=== PATIENT | female | born 1930 | race Caucasian/White ===

== ENCOUNTER 2017-08-30 05:36 | Outpatient (CLI) | payer MEDICARE, MEDICAID ==
[~2017-08-30] VITALS: Ht 167.6 cm; Wt 59.7 kg
[~2017-08-30 05:36] MED LIST: AC325T PO; ASP325TEC PO; ATR20T PO; BSP5T PO; BUSP10TA95 PO; BUSP5TAB59 PO; BUSPAR PO; CHOL2000 PO; CHOL400C8 PO; CLCX200C; CLCX200C PO; DARI15TA4 PO; DICY10CA26 PO; DIGO125T PO; DIGO250T PO; FESO4TAB; HYOS0.127; LISI20TA2 PO; LNS30CCR; METH500T7; METO10TA3; METO5TAB2 PO; MTP25TSR PO; NF-ESOM40C PO; NYST1000 PO; OMEP-10 PO; OMEP20CA6 PO; OXYB15TA PO; PANT40TA2 PO; RLX60T PO; SIMV40TA2; SUCR1ORA5 PO; WARF3TAB6 PO; WRF3T PO; [UNRECOGNIZED DRUG - CODE]; fish PO
== END 2017-08-30 10:15 ==
LOC: PREOP 05:36
PROVIDERS: ATTEND Surgery
DX: Z01.818 Encounter for other preprocedural examination (principal); R13.10 Dysphagia, unspecified

== ENCOUNTER 2017-09-03 08:57 | Day surgery (SDC) | payer MEDICARE, MEDICAID ==
[~2017-09-03] VITALS: Ht 167.6 cm; Wt 59.7 kg
[2017-09-03] MEDS ORDERED: LACTATED RINGERS 1,000 ML IV STA (09:05)
[2017-09-03] MEDS ORDERED: HURRICAINE EXT TUBE (BENZOCAINE) XX PRN (09:15)
[2017-09-03] MEDS ORDERED: CHOL10008 PO (09:26)
[2017-09-03] MEDS ORDERED: DIGO125T PO (09:26)
[2017-09-03] MEDS ORDERED: METO10TA3 PO (09:26)
[2017-09-03] MEDS ORDERED: OXYB15TA PO (09:26)
[2017-09-03] MEDS ORDERED: CELE-63 PO (09:26)
[2017-09-03] MEDS ORDERED: RALO60TA12 PO (09:26)
[2017-09-03] MEDS ORDERED: LISI-552 PO (09:26)
[2017-09-03] MEDS ORDERED: DICY10CA12 PO (09:26)
[2017-09-03] MEDS ORDERED: WARF3TAB6 PO (09:31)
[2017-09-03] MEDS ORDERED: OMG1KC PO (09:31)
[2017-09-03] MEDS ORDERED: ASPI-999 PO (09:31)
[2017-09-03] MEDS ORDERED: PANT40TA2 PO (09:31)
[2017-09-03] MEDS ORDERED: AMLO5TAB2 PO (09:31)
[2017-09-03] MEDS ORDERED: DORZ10DR OU (09:31)
[2017-09-03] MEDS ORDERED: MIDAZOLAM 2 MG/2 ML (VERSED) VIAL ONE (11:13)
[2017-09-03] MEDS ORDERED: proPOfol 200 MG/20 ML (DIPRIVAN) VIAL IV ONE (11:13)
[2017-09-03] MEDS ORDERED: LABETALOL HCL 20 MG/4 ML VIAL ONE (11:23)
== END 2017-09-03 14:30 | disposition home or self-care (01) ==
LOC: ENDO 08:57
PROVIDERS: ATTEND Surgery
DX: J39.2 Other diseases of pharynx (principal); K21.9 Gastro-esophageal reflux disease without esophagitis; I44.0 Atrioventricular block, first degree; I10 Essential (primary) hypertension; I48.91 Unspecified atrial fibrillation; E78.2 Mixed hyperlipidemia; Z86.73 Personal history of transient ischemic attack (TIA), and cerebral infarction without residual deficits; Z79.01 Long term (current) use of anticoagulants; Z79.899 Other long term (current) drug therapy

== ENCOUNTER → 2017-09-04 | Outpatient (CLI) | payer MEDICARE, MEDICAID ==
[~2017-09-04] MED LIST changes: +AMLO5TAB2 PO; +ASPI-999 PO; +CELE-63 PO; +CHOL10008 PO; +DICY10CA12 PO; +DORZ10DR OU; +LISI-552 PO; +METO10TA3 PO; +OMG1KC PO; +RALO60TA12 PO
--- NOTE | 2017-09-04 11:35 | Diagnostic Imaging Report ---
EXAMINATION: Modified barium swallow. Indication: Dysphagia Different consistencies of fluid and food was given mixed with barium and swallowing was visualized under fluoroscopy. FLUOROSCOPY TIME: 41 seconds FINDINGS: No aspiration seen. There is an area of persistent narrowing seen at the lower from hypopharynx near the retropharyngeal and upper esophageal sphincter level. There is no significant superior from the adjacent vertebra seen. 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 ENT evaluation is suggested. Please refer to speech therapist's report for additional details . Dictated by: Dictated on workstation # [id number]
== END ==
LOC: RAD 10:21
PROVIDERS: ATTEND Surgery
DX: R13.10 Dysphagia, unspecified (principal)
CPT/HCPCS: 74230

== ENCOUNTER 2018-01-31 14:46 | Emergency (ER) | payer MEDICARE, MEDICAID ==
[~2018-01-31] VITALS: Ht 157.5 cm; Wt 58.1 kg
[~2018-01-31 14:46] MED LIST changes: +WARF3TAB56 PO
--- NOTE | 2018-01-31 14:52 | ED Fall/Injury ---
General Stated Complaint: FALL-HEAD AND NECK PAIN Source: patient Exam Limitations: no limitations History of Present Illness Date Seen by Provider: Jan 31, 2018 Time Seen by Provider: 14:50 Initial Comments This 87-year-old female presents after she inadvertently fell at home from standing height sustaining injury to her head. The patient is on Coumadin. The patient denies loss of consciousness. She states that she simply lost her balance causing fall. Patient denies paresthesias or weakness of extremities. Patient denies other remarkable injuries in the accident. Allergies and Home Medications Allergies Coded Allergies: Penicillins (Unverified Allergy, Intermediate, 04/17/10) Thzaurp-Xqh-Cwt Reductase Inhibitor (Verified Allergy, Unknown, RASH, 09/03) latex (Verified Allergy, Unknown, 09/03/17) Home Medications Amlodipine Besylate 5 Mg Tablet, 5 MG PO HS, (Reported) Aspirin 81 Mg Tab.chew, 81 MG PO DAILY PRN, (Reported) Celecoxib 200 Mg Capsule, 200 MG PO DAILY PRN for depression, (Reported) Cholecalciferol (Vitamin D3) 1,000 Unit Tab.chew, 1,000 UNIT PO DAILY, (Reported ) Dicyclomine HCl 10 Mg Capsule, 10 MG PO Q6H PRN for HEARTBURN, (Reported) Digoxin 125 Mcg Tablet, 125 MCG PO DAILY, (Reported) Dorzolamide HCl 10 Ml Drops, 1 DROP OU BID, (Reported) Lisinopril 20 Mg Tablet, 20 MG PO DAILY, (Reported) Metoclopramide HCl 10 Mg Tablet, 10 MG PO Q6H PRN for NAUSEA/VOMITING-1ST LINE, (Reported) [place] 3 Polyunsat Fatty Acids 1,000 Mg Cap, 1,000 MG PO DAILY, (Reported) Oxybutynin Chloride 15 Mg Tab.er.24, 15 MG PO DAILY PRN for bladder control, ( Reported) Pantoprazole Sodium 40 Mg Tablet.dr, 40 MG PO BID, (Reported) Raloxifene HCl 60 Mg Tablet, 60 MG PO HS PRN for joint pain, (Reported) Warfarin Sodium 3 Mg Tablet, 1.5-3 MG PO DAILY@1800, (Reported) take 1/2 of 3mg tab on Mon,Wed,Fri Patient Home Medication List Home Medication List Reviewed: Yes Constitutional: No chills Eyes: Denies Blurred Vision, Other (there is area of soft tissue swelling over the left occiput.) Ears, Nose, Mouth, Throat: denies ear pain Respiratory: No cough Cardiovascular: No chest pain Gastrointestinal: No abdominal pain, No vomiting Genitourinary: no symptoms reported : No Musculoskeletal: joint pain (in the patient's hips.) Skin: No rash Psychiatric/Neurological: No Symptoms Reported Past Cvybawt-Gtrblq-Jbgoch Hx Patient Social History Recent Foreign Travel: No Contact w/Someone Who Travel: No Recent Hopitalizations: No Immunizations Up To Date Tetanus Booster (TDap): Unknown Date of Pneumonia Vaccine: Sep 26, 2012 Date of Influenza Vaccine: Sep 16, 2014 Seasonal Allergies Seasonal Allergies: No Surgeries Surgeries: Appendectomy, Hysterectomy Cardiovascular Cardiac Disorders: Atrial Fibrillation, Hypertension Reproductive System Hx Reproductive Disorders: No Sexually Transmitted Disease: No HIV/AIDS: No Female Reproductive Disorders: Denies 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 Gastrointestinal Gastrointestinal Disorders: Hiatal Hernia, Ulcer Musculoskeletal Musculoskeletal Disorders: Osteoporosis, Arthritis, Chronic Back Pain HEENT HEENT Disorders: Cataract Loss of Vision: Bilateral Psychosocial Behavioral Health Disorders: Anxiety Blood Transfusions Adverse Reaction to a Blood Tr: No (N/A) Reviewed Nursing Assessment Reviewed/Agree w Nursing PMH: Yes Family Medical History Significant Family History: No Pertinent Family Hx Family Medial History: Physical Exam Vital Signs Vital Signs - First Documented 01/31/18 14:55 Temp 98.0 Pulse 71 Resp 18 B/P (MAP) 193/90 (124) Pulse Ox 96 Capillary Refill : General Appearance: WD/WN, no apparent distress HEENT: normal ENT inspection Neck: full range of motion, normal inspection Cardiovascular: irregularly irregular Respiratory: lungs clear Gastrointestinal: normal bowel sounds, non tender Back: normal inspection, no vertebral tenderness Extremities: normal range of motion, non-tender Neurologic/Psychiatric: no motor/sensory deficits, alert, normal mood/affect, oriented x 3 Skin: normal color, warm/dry Progress/Results/Core Measures Results/Orders Lab Results Laboratory Tests Test 01/31/18 15:53 Range/Units Prothrombin Time 20.7 H 12.2-14.7 SEC INR Comment 1.8 H 0.8-1.4 My Orders Orders - HANNA GARCIA MD Protime With Inr (01/31/18 14:49) Pelvis With Left Hip 2-3 Views (01/31/18 15:00) Ct Head/Cervical Spine Wo (3/2/18 14:49) Vital Signs/I&O Vital Sign - Last 12Hours 01/31/18 14:55 Temp 98.0 Pulse 71 Resp 18 B/P (MAP) 193/90 (124) Pulse Ox 96 Progress Note : Time: 17:13 Progress Note The patient's daughter describes some confusion today when talking to her mother similar to previous episodes of TIA. The patient according to the daughter appears to be normal at this time. INR was 1.8. CT of the head failed him see evidence of acute pathology. Pelvis x-ray failed to show evidence of fracture. We discussed the findings and treatment options with the patient and her daughter. The patient would like to return home. The daughter is comfortable with this treatment approach and will bring the patient back to emergency department if any further problems or questions. Departure Impression Impression: Primary Impression: Atrial fibrillation Qualified Codes: I48.2 - Chronic atrial fibrillation Additional Impression: Fall Qualified Codes: W19.XXXA - Unspecified fall, initial encounter Disposition: 01 HOME, SELF-CARE Condition: Improved Departure-Patient Inst. Decision time for Depature: 17:15 Referrals: DIANE BENITES (PCP) Primary Care Physician Patient Instructions: Closed Head Injury (DC) Add. Discharge Instructions: Back any further problems or questions. Close follow-up with her doctor on Saturday. HANNA GARCIA MD Jan 31, 2018 14:52
--- NOTE | 2018-01-31 15:59 | Diagnostic Imaging Report ---
PROCEDURE: CT head and CT cervical spine without contrast. TECHNIQUE: Multiple contiguous axial images were obtained through the brain and cervical spine without the use of intravenous contrast. Sagittal and coronal reformations through the cervical spine were then performed. INDICATION: Fall with head injury. FINDINGS: CT BRAIN: Ventricles and sulci are consistent with the patient's age. Mild periventricular hypodensity is noted consistent with senescent change. No sulcal effacement is identified. There is no midline shift. No acute intra-axial or extra-axial hemorrhage is seen. IMPRESSION: No acute intracranial process is detected. CT CERVICAL SPINE: Severe multilevel degenerative disc disease is seen. There is complete loss of the disc space at all levels with marginal osteophyte formation. Cystic degenerative changes of the odontoid are noted. There are marked degenerative changes at the C1-2 level on the left. No fractures are identified. Prevertebral tissues are normal. IMPRESSION: Severe cervical spondylosis. No acute bony abnormality is detected. Dictated by: Dictated on workstation # [id number]
--- NOTE | 2018-01-31 16:00 | Diagnostic Imaging Report ---
INDICATION: Fall and left groin pain. TIME OF EXAM: 03:48 p.m. FINDINGS: Femoroacetabular alignment is normal. The femoral head and neck are intact. The rami appear intact. No fractures are seen. SI joints and symphyses are non-widened. IMPRESSION: No acute bony abnormality is detected. Dictated by: Dictated on workstation # [id number]
[2018-01-31 16:12] LABS: INR 1.8 (0.8-1.4); PROTHROMBIN TIME PATIENT 20.7 SEC (12.2-14.7)
[2018-01-31 17:30] VITALS: BP 193/90
== END 2018-01-31 17:30 | disposition home or self-care (01) ==
LOC: EDUNIT# 14:46 → ER 14:48
DX: S09.90XA Unspecified injury of head, initial encounter (principal); I48.91 Unspecified atrial fibrillation; F41.9 Anxiety disorder, unspecified; M81.0 Age-related osteoporosis without current pathological fracture; I10 Essential (primary) hypertension; Z90.710 Acquired absence of both cervix and uterus; Z90.49 Acquired absence of other specified parts of digestive tract; Z87.19 Personal history of other diseases of the digestive system; Z79.01 Long term (current) use of anticoagulants; Z79.82 Long term (current) use of aspirin; Z88.0 Allergy status to penicillin; Z88.8 Allergy status to other drugs, medicaments and biological substances; Z91.040 Latex allergy status; W17.89XA Other fall from one level to another, initial encounter; Y92.009 Unspecified place in unspecified non-institutional (private) residence as the place of occurrence of the external cause
CPT/HCPCS: 36415; 70450; 72125; 85610

== ENCOUNTER → 2018-07-08 | Outpatient (CLI) | payer MEDICARE, MEDICAID | LOC: WOUNDCARE 08:54 | PROVIDERS: ATTEND Nurse Practitioner | DX: L97.521 Non-pressure chronic ulcer of other part of left foot limited to breakdown of skin (principal); L03.116 Cellulitis of left lower limb | CPT/HCPCS: 97597 ==

== ENCOUNTER → 2018-07-15 | Outpatient (CLI) | payer MEDICARE, MEDICAID | LOC: WOUNDCARE 09:21 | PROVIDERS: ATTEND Nurse Practitioner | DX: L97.522 Non-pressure chronic ulcer of other part of left foot with fat layer exposed (principal); L03.116 Cellulitis of left lower limb | CPT/HCPCS: 11042 ==

== ENCOUNTER → 2018-08-05 | Outpatient (CLI) | payer MEDICARE, MEDICAID ==
[~2018-08-05] MED LIST changes: -AMLO5TAB2 PO; +AMLO5TAB7 PO
== END ==
LOC: WOUNDCARE 09:40
PROVIDERS: ATTEND Nurse Practitioner
DX: L03.116 Cellulitis of left lower limb (principal); L97.521 Non-pressure chronic ulcer of other part of left foot limited to breakdown of skin
CPT/HCPCS: 99212

== ENCOUNTER → 2018-09-17 | Outpatient (CLI) | payer MEDICARE, MEDICAID | LOC: CARD 10:39 | PROVIDERS: ATTEND Internal Medicine Cardiovascular Disease | DX: I10 Essential (primary) hypertension (principal); E78.2 Mixed hyperlipidemia; R00.2 Palpitations; I48.0 Paroxysmal atrial fibrillation; I08.1 Rheumatic disorders of both mitral and tricuspid valves; K21.9 Gastro-esophageal reflux disease without esophagitis | CPT/HCPCS: 93306 ==

== ENCOUNTER 2019-04-19 12:36 | Observation (INO) | payer MEDICARE, MEDICAID ==
[~2019-04-19] VITALS: Ht 157.5 cm; Wt 57.4 kg
[~2019-04-19 12:36] MED LIST changes: -AMLO5TAB7 PO; +AMLO5TAB9 PO
--- OUTSIDE RECORDS SUMMARY | 2019-04-19 12:42 | XMS REPORT | Continuity of Care Document ---
Author Organization Unknown Address Unknown Allergies Active Description Code Type Severity Reaction Onset Reported/Identified Relationship to Patient Clinical Status Yes PENICILLINS UNKNOWN UNKNOWN Yes SEAFOOD MODERATE DERMATOLOGICAL - JOSELINE Yes Penicillins [id number] Drug Allergy Moderate N/A 04/17/2010 Yes latex [id number] Drug Allergy Unknown N/A 09/03/2017 Yes Yzyvrlm-Jkd-Hcp Reductase Inhibitor [id number] Drug Allergy Unknown RASH 09/03/2017 Medications There is no data. Problems Date Dx Coded Attending Type Code Diagnosis Diagnosed By 04/22/2010 Ot 272.4 04/22/2010 Ot 276.51 04/22/2010 Ot 401.9 04/22/2010 Ot 427.31 04/22/2010 Ot 530.81 04/22/2010 Ot 536.8 04/22/2010 Ot 716.96 04/22/2010 Ot 733.00 04/22/2010 Ot 782.3 04/22/2010 Ot 787.01 04/22/2010 Ot E935.8 04/25/2010 Ot 427.31 04/25/2010 Ot V58.61 07/04/2013 CAL SOTO MD Ot 272.4 HYPERLIPIDEMIA NEC/NOS 07/04/2013 CAL SOTO MD Ot 401.9 HYPERTENSION NOS 07/04/2013 CAL SOTO MD Ot 427.31 ATRIAL FIBRILLATION 07/04/2013 CAL SOTO MD Ot 733.00 OSTEOPOROSIS NOS 07/04/2013 CAL SOTO MD Ot 780.60 FEVER, UNSPECIFIED 07/04/2013 CAL SOTO MD Ot 780.79 OTH MALAISE FATIGUE 07/04/2013 CAL SOTO MD Ot 780.97 ALTERED MENTAL STATUS 07/04/2013 CAL SOTO MD Ot 784.0 HEADACHE 07/04/2013 CAL SOTO MD Ot 787.01 NAUSEA WITH VOMITING 07/04/2013 CAL SOTO MD Ot 787.91 DIARRHEA 07/04/2013 CAL SOTO MD Ot E942.1 ADV EFF CARDIOTONICS 07/04/2013 CAL SOTO MD Ot V58.61 ANTICOAGULANTS,LT,CURRENT USE 10/27/2014 Ot 397.0 10/27/2014 Ot 424.0 10/27/2014 Ot 427.31 10/27/2014 Ot 429.3 10/27/2014 Ot 786.09 10/27/2014 Ot 427.31 10/27/2014 Ot 786.09 10/27/2014 JASBIR HI MD Ot 722.52 10/27/2014 JASBIR HI MD Ot 729.5 10/28/2014 GISELLA MOONEY FACC, ALI FACP CCDS Ot 272.4 HYPERLIPIDEMIA NEC/NOS 10/28/2014 GISELLA MOONEY FACC, ALI FACP CCDS Ot 401.9 HYPERTENSION NOS 10/28/2014 GISELLA MOONEY FACC, ALI FACP CCDS Ot 427.31 ATRIAL FIBRILLATION 10/28/2014 GISELLA MOONEY FACC, ALI FACP CCDS Ot 433.10 CAROTID ARTERY OCCLUSION W O CEREBRAL IN 10/28/2014 GISELLA MOONEY FACC, ALI FACP CCDS Ot 433.30 MULT BILTRAL ARTERY OCCLUSION WO CEREBRA 10/28/2014 GISELLA MOONEY FACC, ALI FACP CCDS Ot 530.81 ESOPHAGEAL REFLUX 10/28/2014 GISELLA MOONEY FACC, ALI FACP CCDS Ot 272.4 10/28/2014 GISELLA MOONEY FACC, ALI FACP CCDS Ot 401.9 10/28/2014 GISELLA MOONEY FACC, ALI FACP CCDS Ot 427.31 10/28/2014 GISELLA CAZARESC, ALI FACP CCDS Ot 433.10 10/28/2014 GISELLA MOONEY FACC, ALI FACP CCDS Ot 433.30 10/28/2014 GISELLA MOONEY FACC, ALI FACP CCDS Ot 530.81 11/02/2014 Ot 397.0 11/02/2014 Ot 424.0 11/02/2014 Ot 427.31 11/02/2014 Ot 429.3 11/02/2014 Ot 786.09 11/02/2014 Ot 427.31 11/02/2014 Ot 786.09 11/02/2014 JASBIR HI MD Ot 722.52 11/02/2014 JASBIR HI MD Ot 729.5 12/01/2014 GISELLA MOONEY [facility], ALI FACP CCDS Ot 427.31 12/01/2014 GISELLA MOONE[facility] CCD[facility] Ot 518.89 12/22/2014 GISELLA MOONEY [facility] CCDS Ot 427.31 12/22/2014 GISELLA MOONEY [facility], [facility] FACP CCDS Ot 518.89 02/08/2016 JS WALDEN MD Ot E78.2 02/08/2016 JS WALDEN MD Ot I10 02/08/2016 JS WALDEN MD Ot I48.0 02/08/2016 JS WALDEN MD Ot R00.2 02/23/2016 JASBIR HI MD Ot J34.89 02/23/2016 JS WALDEN MD Ot E78.2 02/23/2016 JS WALDEN MD Ot I10 02/23/2016 JS WALDEN MD Ot I48.0 02/23/2016 JS WALDEN MD Ot R00.2 02/27/2016 JASBIR HI MD Ot J34.89 03/08/2016 JS WALDEN MD Ot E78.2 03/08/2016 JS WALDEN MD Ot I10 03/08/2016 JS WALDEN MD Ot I48.0 03/08/2016 JS WALDEN MD Ot R00.2 03/13/2016 JASBIR HI MD Ot J34.89 03/20/2016 JASBIR HI MD Ot J34.89 OTHER SPECIFIED DISORDERS OF NOSE AND NA 03/27/2016 JS WALDEN MD Ot E78.2 MIXED HYPERLIPIDEMIA 03/27/2016 JS WALDEN MD Ot I10 ESSENTIAL (PRIMARY) HYPERTENSION 03/27/2016 JS WALDEN MD Ot I48.0 PAROXYSMAL ATRIAL FIBRILLATION 03/27/2016 JS WALDEN MD Ot R00.2 PALPITATIONS 04/06/2016 JS WALDEN MD Ot E78.2 MIXED HYPERLIPIDEMIA 04/06/2016 JS WALDEN MD Ot I10 ESSENTIAL (PRIMARY) HYPERTENSION 04/06/2016 JS WALDEN MD Ot I48.0 PAROXYSMAL ATRIAL FIBRILLATION 04/06/2016 JS WALDEN MD Ot R00.2 PALPITATIONS 05/02/2016 SUSSY MOONEY, JASBIR Ag Ot R06.02 SHORTNESS OF BREATH 05/22/2016 SUSSY MOONEY, JASBIR Ag Ot R06.02 SHORTNESS OF BREATH 06/06/2016 JASBIR HI MD Ot R06.02 SHORTNESS OF BREATH 07/16/2016 THONG RICHARDSON DO Ot I10 ESSENTIAL (PRIMARY) HYPERTENSION 07/16/2016 THONG RICHARDSON DO Ot 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 07/16/2016 THONG RICHARDSON DO Ot T18.198A OTH FOREIGN OBJECT IN ESOPHAGUS CAUSING 07/16/2016 THONG RICHARDSON DO Ot I10 ESSENTIAL (PRIMARY) HYPERTENSION 07/16/2016 THONG RICHARDSON DO Ot 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 07/16/2016 THONG RICHARDSON DO Ot K29.70 GASTRITIS, UNSPECIFIED, WITHOUT BLEEDING 07/16/2016 THONG RICHARDSON DO Ot K44.9 DIAPHRAGMATIC HERNIA WITHOUT OBSTRUCTION 07/16/2016 THONG RICHARDSON DO Ot T18.198A OTH FOREIGN OBJECT IN ESOPHAGUS CAUSING 07/16/2016 THONG RICHARDSON DO Ot Z79.01 JAIL (CURRENT) USE OF ANTICOAGULANT 07/16/2016 THONG RICHARDSON DO Ot Z79.899 OTHER HEAT SEAL OPERATOR (CURRENT) DRUG THERAPY 07/18/2016 THONG RICHARDSON DO Ot I10 ESSENTIAL (PRIMARY) HYPERTENSION 07/18/2016 THONG RICHARDSON DO Ot 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 07/18/2016 THONG RICHARDSON DO Ot K29.70 GASTRITIS, UNSPECIFIED, WITHOUT BLEEDING 07/18/2016 THONG RICHARDSON DO Ot K44.9 DIAPHRAGMATIC HERNIA WITHOUT OBSTRUCTION 07/18/2016 THONG RICHARDSON DO Ot T18.198A OTH FOREIGN OBJECT IN ESOPHAGUS CAUSING 07/18/2016 THONG RICHARDSON DO Ot Z79.01 JAIL (CURRENT) USE OF ANTICOAGULANT 07/18/2016 THONG RICHARDSON DO Ot Z79.899 OTHER JAIL (CURRENT) DRUG THERAPY 08/30/2017 THONG RICHARDSON DO Ot R13.10 DYSPHAGIA, UNSPECIFIED 08/30/2017 THONG RICHARDSON DO Ot Z01.818 ENCOUNTER FOR OTHER PREPROCEDURAL EXAMIN 08/30/2017 THONG RICHARDSON DO Ot R13.10 DYSPHAGIA, UNSPECIFIED 08/30/2017 THONG RICHARDSON DO Ot Z01.818 ENCOUNTER FOR OTHER PREPROCEDURAL EXAMIN 09/03/2017 Ot 397.0 TRICUSPID VALVE DISEASE 09/03/2017 Ot 424.0 MITRAL VALVE DISORDER 09/03/2017 Ot 427.31 ATRIAL FIBRILLATION 09/03/2017 Ot 429.3 CARDIOMEGALY 09/03/2017 Ot 786.09 RESPIRATORY ABNORM NEC 09/03/2017 Ot 427.31 ATRIAL FIBRILLATION 09/03/2017 Ot 786.09 RESPIRATORY ABNORM NEC 09/03/2017 JASBIR HI MD Ot 722.52 LUMB/LUMBOSAC DISC DEGEN 09/03/2017 JASBIR HI MD Ot 729.5 PAIN IN LIMB 09/03/2017 GISELLA MOONEY FACC, ALI SAGEP CCDS Ot 427.31 ATRIAL FIBRILLATION 09/03/2017 GISELLA MOONEY FACC, ALI SAGEP CCDS Ot 518.89 OTHER DISEASES OF LUNG, NEC 09/03/2017 JS WALDEN MD Ot E78.2 MIXED HYPERLIPIDEMIA 09/03/2017 JS WALDEN MD Ot I10 ESSENTIAL (PRIMARY) HYPERTENSION 09/03/2017 JS WALDEN MD Ot I48.0 PAROXYSMAL ATRIAL FIBRILLATION 09/03/2017 JS WALDEN MD Ot R00.2 PALPITATIONS 09/03/2017 JS WALDEN MD Ot E78.2 MIXED HYPERLIPIDEMIA 09/03/2017 JS WALDEN MD Ot I10 ESSENTIAL (PRIMARY) HYPERTENSION 09/03/2017 JS WALDEN MD Ot I48.0 PAROXYSMAL ATRIAL FIBRILLATION 09/03/2017 JS WALDEN MD Ot R00.2 PALPITATIONS 09/03/2017 JASBIR HI MD Ot J34.89 OTHER SPECIFIED DISORDERS OF NOSE AND NA 09/03/2017 JASBIR HI MD Ot R06.02 SHORTNESS OF BREATH 09/03/2017 Ot 397.0 TRICUSPID VALVE DISEASE 09/03/2017 Ot 424.0 MITRAL VALVE DISORDER 09/03/2017 Ot 427.31 ATRIAL FIBRILLATION 09/03/2017 Ot 429.3 CARDIOMEGALY 09/03/2017 Ot 786.09 RESPIRATORY ABNORM NEC 09/03/2017 Ot 427.31 ATRIAL FIBRILLATION 09/03/2017 Ot 786.09 RESPIRATORY ABNORM NEC 09/03/2017 JASBIR HI MD Ot 722.52 LUMB/LUMBOSAC DISC DEGEN 09/03/2017 JASBIR HI MD Ot 729.5 PAIN IN LIMB 09/03/2017 GISELLA MOONEY FAC, ALI SAGEP CCDS Ot 427.31 ATRIAL FIBRILLATION 09/03/2017 GISELLA MOONEY FAC, ALI FACP CCDS Ot 518.89 OTHER DISEASES OF LUNG, NEC 09/03/2017 JS WALDEN MD Ot E78.2 MIXED HYPERLIPIDEMIA 09/03/2017 JS WALDEN MD Ot I10 ESSENTIAL (PRIMARY) HYPERTENSION 09/03/2017 JS WALDEN MD Ot I48.0 PAROXYSMAL ATRIAL FIBRILLATION 09/03/2017 JS WALDEN MD Ot R00.2 PALPITATIONS 09/03/2017 JS WALDEN MD Ot E78.2 MIXED HYPERLIPIDEMIA 09/03/2017 JS WALDEN MD Ot I10 ESSENTIAL (PRIMARY) HYPERTENSION 09/03/2017 JS WALDEN MD Ot I48.0 PAROXYSMAL ATRIAL FIBRILLATION 09/03/2017 JS WALDEN MD Ot R00.2 PALPITATIONS 09/03/2017 JASBIR HI MD Ot J34.89 OTHER SPECIFIED DISORDERS OF NOSE AND NA 09/03/2017 JASBIR HI MD Ot R06.02 SHORTNESS OF BREATH 09/03/2017 THONG RICHARDSON DO Ot E78.2 MIXED HYPERLIPIDEMIA 09/03/2017 THONG RICHARDSON DO Ot I10 ESSENTIAL (PRIMARY) HYPERTENSION 09/03/2017 THONG RICHARDSON DO Ot I44.0 ATRIOVENTRICULAR BLOCK, FIRST DEGREE 09/03/2017 THONG RICHARDSON DO Ot I48.91 UNSPECIFIED ATRIAL FIBRILLATION 09/03/2017 THONG RICHARDSON DO Ot 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 09/03/2017 THONG RICHARDSON DO Ot K21.9 GASTRO-ESOPHAGEAL REFLUX DISEASE WITHOUT 09/03/2017 THONG RICHARDSON DO Ot Z79.01 HEAT SEAL OPERATOR (CURRENT) USE OF ANTICOAGULANT 09/03/2017 THONG RICHARDSON DO Ot Z79.899 OTHER JAIL (CURRENT) DRUG THERAPY 09/03/2017 THONG RICHARDSON DO Ot Z86.73 PRSNL HX OF TIA (TIA), AND CEREB INFRC W 09/04/2017 RICHARDSON THONG GUILLEN Ot R13.10 DYSPHAGIA, UNSPECIFIED 09/23/2017 RICHARDSONTHONG WOODALL DO Ot E78.2 MIXED HYPERLIPIDEMIA 09/23/2017 RICHARDSON DOTHONG Ot I10 ESSENTIAL (PRIMARY) HYPERTENSION 09/23/2017 THONG RICHARDSON DO Ot I44.0 ATRIOVENTRICULAR BLOCK, FIRST DEGREE 09/23/2017 THONG RICAHRDSON DO Ot I48.91 UNSPECIFIED ATRIAL FIBRILLATION 09/23/2017 THONG RICHARDSON DO Ot 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 09/23/2017 THONG RICHARDSON DO Ot K21.9 GASTRO-ESOPHAGEAL REFLUX DISEASE WITHOUT 09/23/2017 THONG RICHARDSON DO Ot Z79.01 HEAT SEAL OPERATOR (CURRENT) USE OF ANTICOAGULANT 09/23/2017 THONG RICHARDSON DO Ot Z79.899 OTHER JAIL (CURRENT) DRUG THERAPY 09/23/2017 THONG RICHARDSON DO Ot Z86.73 PRSNL HX OF TIA (TIA), AND CEREB INFRC W 09/25/2017 RICHARDSONTHONG WOODALL DO Ot R13.10 DYSPHAGIA, UNSPECIFIED 10/18/2017 THONG RICHARDSON DO Ot R13.10 DYSPHAGIA, UNSPECIFIED 01/31/2018 JOSE MOONEY, HANNA Baker Ot F41.9 ANXIETY DISORDER, UNSPECIFIED 01/31/2018 JOSE MOONEY, HANNA Baker Ot I10 ESSENTIAL (PRIMARY) HYPERTENSION 01/31/2018 JOSE MOONEY, HANNA Baker Ot I48.91 UNSPECIFIED ATRIAL FIBRILLATION 01/31/2018 JOSE MOONEY, HANNA Baker Ot M81.0 AGE-RELATED OSTEOPOROSIS W/O CURRENT PAT 01/31/2018 JOSE MOONEY, HANNA Baker Ot S09.90XA UNSPECIFIED INJURY OF HEAD, INITIAL ENCO 01/31/2018 HANNA GARCIA MD Ot W17.89XA OTHER FALL FROM ONE LEVEL TO ANOTHER, IN 01/31/2018 HANNA GARCIA MD Ot Y92.[address] IN [facility] NON-INSTITUT (PRIVATE 01/31/2018 HANNA GARCIA MD Ot Z79.01 HEAT SEAL OPERATOR (CURRENT) USE OF ANTICOAGULANT 01/31/2018 HANNA GARCIA MD Ot Z79.82 HEAT SEAL OPERATOR (CURRENT) USE OF ASPIRIN 01/31/2018 JOSE MOONEY, HANNA Baker Ot Z87.19 PERSONAL HISTORY OF OTHER DISEASES OF 01/31/2018 HANNA GARCIA MD Ot Z88.0 ALLERGY STATUS TO PENICILLIN 01/31/2018 HANNA GARCIA MD Ot Z88.8 ALLERGY STATUS TO OTH DRUG/MEDS/BIOL SUB 01/31/2018 HANNA GARCIA MD Ot Z90.49 ACQUIRED ABSENCE OF OTHER SPECIFIED PART 01/31/2018 HANNA GARCIA MD Ot Z90.710 ACQUIRED ABSENCE OF BOTH CERVIX AND UTER 01/31/2018 HANNA GARCIA MD Ot Z91.040 LATEX ALLERGY STATUS 02/03/2018 HANNA GARCIA MD Ot F41.9 ANXIETY DISORDER, UNSPECIFIED 02/03/2018 HANNA GARCIA MD Ot I10 ESSENTIAL (PRIMARY) HYPERTENSION 02/03/2018 HANNA GARCIA MD Ot I48.91 UNSPECIFIED ATRIAL FIBRILLATION 02/03/2018 HANNA GARCIA MD Ot M81.0 AGE-RELATED OSTEOPOROSIS W/O CURRENT PAT 02/03/2018 HANNA GARCIA MD Ot S09.90XA UNSPECIFIED INJURY OF HEAD, INITIAL ENCO 02/03/2018 HANNA GARCIA MD Ot W17.89XA OTHER FALL FROM ONE LEVEL TO ANOTHER, IN 02/03/2018 HANNA GARCIA MD Ot Y92.[address] IN [facility] NON-INSTIT[facility] (PRIVATE 02/03/2018 HANNA GARCIA MD Ot Z79.01 JAIL (CURRENT) USE OF ANTICOAGULANT 02/03/2018 HANNA GARCIA MD Ot Z79.82 HEAT SEAL OPERATOR (CURRENT) USE OF ASPIRIN 02/03/2018 HANNA GARCIA MD Ot Z87.19 PERSONAL HISTORY OF OTHER DISEASES OF 02/03/2018 HANNA GARCIA MD Ot Z88.0 ALLERGY STATUS TO PENICILLIN 02/03/2018 HANNA GARCIA MD Ot Z88.8 ALLERGY STATUS TO OTH DRUG/MEDS/BIOL SUB 02/03/2018 HANNA GARCIA MD Ot Z90.49 ACQUIRED ABSENCE OF OTHER SPECIFIED PART 02/03/2018 HANNA GARCIA MD Ot Z90.710 ACQUIRED ABSENCE OF BOTH CERVIX AND UTER 02/03/2018 JOSE MOONEY, HANNA Baker Ot Z91.040 LATEX ALLERGY STATUS 03/26/2018 Anette, Robyn W 401.0 03/26/2018 Anette, Robyn W 427.32 ATRIAL FLUTTER 03/26/2018 Anette, Robyn W 477.8 03/26/2018 Anette, Robyn W 780.79 OTHER MALAISE AND FATIGUE 03/26/2018 Anette, Robyn W 783.21 LOSS OF WEIGHT 03/26/2018 Anette, Robyn W I10 ESSENTIAL (PRIMARY) HYPERTENSION 03/26/2018 Anette, Robyn W I48.1 PERSISTENT ATRIAL FIBRILLATION 03/26/2018 Anette, Robyn W J30.2 OTHER SEASONAL ALLERGIC RHINITIS 03/26/2018 Anette, Robyn W R53.1 WEAKNESS 03/26/2018 Anette, Robyn W R63.4 ABNORMAL WEIGHT LOSS 03/26/2018 Anette, Robyn W V58.61 LONG- TERM (CURRENT) USE OF ANTICOAGULANTS 03/26/2018 Anette, Robyn W Z79.01 JAIL (CURRENT) USE OF ANTICOAGULANTS 03/26/2018 Anette, Robyn W 401.0 03/26/2018 Anette, Robyn W 427.32 ATRIAL FLUTTER 03/26/2018 Anette, Robyn W 477.8 03/26/2018 Anette, Robyn W 780.79 03/26/2018 Anette, Robyn W 783.21 LOSS OF WEIGHT 03/26/2018 Anette, Robyn W I10 ESSENTIAL (PRIMARY) HYPERTENSION 03/26/2018 Anette, Robyn W I48.1 PERSISTENT ATRIAL FIBRILLATION 03/26/2018 Anette, Robyn W J30.2 OTHER SEASONAL ALLERGIC RHINITIS 03/26/2018 Anette, Robyn W R53.1 WEAKNESS 03/26/2018 Anette, Robyn W R63.4 ABNORMAL WEIGHT LOSS 03/26/2018 Anette, Robyn W V58.61 LONG- TERM (CURRENT) USE OF ANTICOAGULANTS 03/26/2018 Anette, Robyn W Z79.01 JAIL (CURRENT) USE OF ANTICOAGULANTS 06/09/2018 Anette, Robyn W 682.9 CELLULITIS AND ABSCESS OF UNSPECIFIED SITES 06/09/2018 Anette, Robyn W L03.90 CELLULITIS, UNSPECIFIED 06/09/2018 Anette, Robyn W 682.9 CELLULITIS AND ABSCESS OF UNSPECIFIED SITES 06/09/2018 Anette, Robyn W L03.90 CELLULITIS, UNSPECIFIED 07/24/2018 CHINYERE SNEED LEAD DENTAL ASSISTANT Ot L03.116 CELLULITIS OF LEFT LOWER LIMB 07/24/2018 CHINYERE SNEED LEAD DENTAL ASSISTANT Ot L97.522 NON-PRS CHRONIC ULCER OTH PRT LEFT FOOT 07/29/2018 Ot L03.116 CELLULITIS OF LEFT LOWER LIMB 07/29/2018 Ot L97.521 NON-PRS CHRONIC ULCER OTH PRT L FOOT BLACKMAN 07/30/2018 CHINYERE SNEED R LEAD DENTAL ASSISTANT Ot L03.116 CELLULITIS OF LEFT LOWER LIMB 07/30/2018 CHINYERE SNEED R LEAD DENTAL ASSISTANT Ot L97.521 NON-PRS CHRONIC ULCER OTH PRT L FOOT BLACKMAN 08/05/2018 CHINYERE SNEED R LEAD DENTAL ASSISTANT Ot L03.116 CELLULITIS OF LEFT LOWER LIMB 08/05/2018 CHINYERE SNEED LEAD DENTAL ASSISTANT Ot L97.521 NON-PRS CHRONIC ULCER OTH PRT L FOOT BLACKMAN 08/07/2018 CHINYERE SNEED LEAD DENTAL ASSISTANT Ot L03.116 CELLULITIS OF LEFT LOWER LIMB 08/07/2018 CHINYERE SNEED LEAD DENTAL ASSISTANT Ot L97.521 NON-PRS CHRONIC ULCER OTH PRT L FOOT BLACKMAN 08/08/2018 Fara Cohen W 041.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9 PERIPHERAL VASCULAR DISEASE, UNSPECIFIED 08/08/2018 Fara Cohen W L03.116 CELLULITIS OF LEFT LOWER LIMB 08/08/2018 Fara Cohen S81.802D UNSPECIFIED OPEN WOUND, LEFT LOWER LEG, SUBSEQUENT ENCOUNTER 08/08/2018 Ayesha Cohenu Alfonso V58.89 08/12/2018 Ot L03.116 CELLULITIS OF LEFT LOWER LIMB 08/12/2018 Ot L97.521 NON-PRS CHRONIC ULCER OTH PRT L FOOT BLACKMAN 08/20/2018 Ot L03.116 CELLULITIS OF LEFT LOWER LIMB 08/20/2018 Ot L97.522 NON-PRS CHRONIC ULCER OTH PRT LEFT FOOT 08/20/2018 NEDRACHINYERE LEAD DENTAL ASSISTANT Ot L03.116 CELLULITIS OF LEFT LOWER LIMB 08/20/2018 CHINYERE SNEED LEAD DENTAL ASSISTANT Ot L97.522 NON-PRS CHRONIC ULCER OTH PRT LEFT FOOT 08/20/2018 NEDRACHINYERE LEAD DENTAL ASSISTANT Ot L03.116 CELLULITIS OF LEFT LOWER LIMB 08/20/2018 CHINYERE SNEED LEAD DENTAL ASSISTANT Ot L97.521 NON-PRS CHRONIC ULCER OTH PRT L FOOT BLACKMAN 08/29/2018 Ot L03.116 CELLULITIS OF LEFT LOWER LIMB 08/29/2018 Ot L97.522 NON-PRS CHRONIC ULCER OTH PRT LEFT FOOT 08/29/2018 CHINYERE SNEED LEAD DENTAL ASSISTANT Ot L03.116 CELLULITIS OF LEFT LOWER LIMB 08/29/2018 CHINYERE SNEED LEAD DENTAL ASSISTANT Ot L97.522 NON-PRS CHRONIC ULCER OTH PRT LEFT FOOT 08/29/2018 CHINYERE SNEED LEAD DENTAL ASSISTANT Ot L03.116 CELLULITIS OF LEFT LOWER LIMB 08/29/2018 CHINYERE SNEED LEAD DENTAL ASSISTANT Ot L97.521 NON-PRS CHRONIC ULCER OTH PRT L FOOT BLACKMAN 08/29/2018 CHINYERE SNEED LEAD DENTAL ASSISTANT Ot L03.116 CELLULITIS OF LEFT LOWER LIMB 08/29/2018 CHINYERE SNEED LEAD DENTAL ASSISTANT Ot L97.521 NON-PRS CHRONIC ULCER OTH PRT L FOOT BLACKMAN 09/04/2018 CHINYERE SNEED LEAD DENTAL ASSISTANT Ot L03.116 CELLULITIS OF LEFT LOWER LIMB 09/04/2018 CHINYERE SNEED LEAD DENTAL ASSISTANT Ot L97.521 NON-PRS CHRONIC ULCER OTH PRT L FOOT BLACKMAN 09/16/2018 JASBIR HI MD Ot 722.52 LUMB/LUMBOSAC DISC DEGEN 09/16/2018 JASBIR HI MD Ot 729.5 PAIN IN LIMB 09/16/2018 GISELLA MOONEY FAC, KEZIA CAZARESP CCDS Ot 427.31 ATRIAL FIBRILLATION 09/16/2018 GISELLA MOONEY FACC, KEZIA HUTCHISON CCDS Ot 518.89 OTHER DISEASES OF LUNG, NEC 09/16/2018 JS WALDEN MD Ot E78.2 MIXED HYPERLIPIDEMIA 09/16/2018 JS WALDEN MD Ot I10 ESSENTIAL (PRIMARY) HYPERTENSION 09/16/2018 JS WALDEN MD Ot I48.0 PAROXYSMAL ATRIAL FIBRILLATION 09/16/2018 JS WALDEN MD J Ot R00.2 PALPITATIONS 09/16/2018 JS WALDEN MD Ot E78.2 MIXED HYPERLIPIDEMIA 09/16/2018 JS WALDEN MD Ot I10 ESSENTIAL (PRIMARY) HYPERTENSION 09/16/2018 JS WALDEN MD Ot I48.0 PAROXYSMAL ATRIAL FIBRILLATION 09/16/2018 JS WALDEN MD Ot R00.2 PALPITATIONS 09/16/2018 JASBIR HI MD Ot J34.89 OTHER SPECIFIED DISORDERS OF NOSE AND NA 09/16/2018 JASBIR HI MD Ot R06.02 SHORTNESS OF BREATH 09/16/2018 THONG RICHARDSON DO Ot R13.10 DYSPHAGIA, UNSPECIFIED 09/16/2018 Ot L03.116 CELLULITIS OF LEFT LOWER LIMB 09/16/2018 Ot L97.521 NON-PRS CHRONIC ULCER OTH PRT L FOOT BLACKMAN 09/16/2018 Ot L03.116 CELLULITIS OF LEFT LOWER LIMB 09/16/2018 Ot L97.522 NON-PRS CHRONIC ULCER OTH PRT LEFT FOOT 09/16/2018 CHINYERE SNEED LEAD DENTAL ASSISTANT Ot L03.116 CELLULITIS OF LEFT LOWER LIMB 09/16/2018 CHINYERE SNEED LEAD DENTAL ASSISTANT Ot L97.522 NON-PRS CHRONIC ULCER OTH PRT LEFT FOOT 09/16/2018 CHINYERE SNEED LEAD DENTAL ASSISTANT Ot L03.116 CELLULITIS OF LEFT LOWER LIMB 09/16/2018 CHINYERE SNEED LEAD DENTAL ASSISTANT Ot L97.521 NON-PRS CHRONIC ULCER OTH PRT L FOOT BLACKMAN 09/16/2018 CHINYERE SNEED LEAD DENTAL ASSISTANT Ot L03.116 CELLULITIS OF LEFT LOWER LIMB 09/16/2018 CHINYERE SNEED LEAD DENTAL ASSISTANT Ot L97.521 NON-PRS CHRONIC ULCER OTH PRT L FOOT BLACKMAN 09/17/2018 JASBIR HI MD Ot 722.52 LUMB/LUMBOSAC DISC DEGEN 09/17/2018 JASBIR HI MD Ot 729.5 PAIN IN LIMB 09/17/2018 GISELLA MOONEY FAC, ALI FACP CCDS Ot 427.31 ATRIAL FIBRILLATION 09/17/2018 GISELLA MOONEY FAC, ALI FACP CCDS Ot 518.89 OTHER DISEASES OF LUNG, NEC 09/17/2018 JS WALDEN MD Ot E78.2 MIXED HYPERLIPIDEMIA 09/17/2018 JS WALDEN MD Ot I10 ESSENTIAL (PRIMARY) HYPERTENSION 09/17/2018 JS WALDEN MD Ot I48.0 PAROXYSMAL ATRIAL FIBRILLATION 09/17/2018 JS WALDEN MD Ot R00.2 PALPITATIONS 09/17/2018 JS WALDEN MD Ot E78.2 MIXED HYPERLIPIDEMIA 09/17/2018 JS WALDEN MD Ot I10 ESSENTIAL (PRIMARY) HYPERTENSION 09/17/2018 JS WALDEN MD Ot I48.0 PAROXYSMAL ATRIAL FIBRILLATION 09/17/2018 SJ WALDEN MD Ot R00.2 PALPITATIONS 09/17/2018 JASBIR HI MD Ot J34.89 OTHER SPECIFIED DISORDERS OF NOSE AND NA 09/17/2018 JASBIR HI MD Ot R06.02 SHORTNESS OF BREATH 09/17/2018 THONG RICHARDSON DO Ot R13.10 DYSPHAGIA, UNSPECIFIED 09/17/2018 Ot L03.116 CELLULITIS OF LEFT LOWER LIMB 09/17/2018 Ot L97.521 NON-PRS CHRONIC ULCER OTH PRT L FOOT BLACKMAN 09/17/2018 Ot L03.116 CELLULITIS OF LEFT LOWER LIMB 09/17/2018 Ot L97.522 NON-PRS CHRONIC ULCER OTH PRT LEFT FOOT 09/17/2018 CHINYERE SNEED APRN Ot L03.116 CELLULITIS OF LEFT LOWER LIMB 09/17/2018 CHINYERE SNEED APRN Ot L97.522 NON-PRS CHRONIC ULCER OTH PRT LEFT FOOT 09/17/2018 CHINYERE SNEED APRN Ot L03.116 CELLULITIS OF LEFT LOWER LIMB 09/17/2018 CHINYERE SNEED APRN Ot L97.521 NON-PRS CHRONIC ULCER OTH PRT L FOOT BLACKMAN 09/17/2018 CHINYERE SNEED APRN Ot L03.116 CELLULITIS OF LEFT LOWER LIMB 09/17/2018 CHINYERE SNEED APRN Ot L97.521 NON-PRS CHRONIC ULCER OTH PRT L FOOT BLACKMAN 10/09/2018 JS WALDEN MD Ot E78.2 MIXED HYPERLIPIDEMIA 10/09/2018 JS WALDEN MD Ot I08.1 RHEUMATIC DISORDERS OF BOTH MITRAL AND T 10/09/2018 JS WALDEN MD Ot I10 ESSENTIAL (PRIMARY) HYPERTENSION 10/09/2018 JS WALDEN MD Ot I48.0 PAROXYSMAL ATRIAL FIBRILLATION 10/09/2018 JS WALDEN MD Ot K21.9 GASTRO-ESOPHAGEAL REFLUX DISEASE WITHOUT 10/09/2018 JS WALDEN MD Ot R00.2 PALPITATIONS 10/18/2018 JS WALDEN MD Ot E78.2 MIXED HYPERLIPIDEMIA 10/18/2018 JS WALDEN MD Ot I08.1 RHEUMATIC DISORDERS OF BOTH MITRAL AND T 10/18/2018 JS WALDEN MD Ot I10 ESSENTIAL (PRIMARY) HYPERTENSION 10/18/2018 JS WALDEN MD Ot I48.0 PAROXYSMAL ATRIAL FIBRILLATION 10/18/2018 JS WALDEN MD, Ot K21.9 GASTRO-ESOPHAGEAL REFLUX DISEASE WITHOUT 10/18/2018 JS WALDEN MD Ot R00.2 PALPITATIONS Procedures There is no data. Results Test Result Range PT panel in platelet poor plasma by coagulation assay - 07/14/16 18:00 Prothrombin time (PT) in platelet poor plasma by coagulation assay 22.8 s 12.2-14.7 INR in platelet poor plasma or blood by coagulation assay 2.0 0.8-1.4 Comprehensive metabolic panel - 07/14/16 18:00 Serum or plasma sodium measurement (moles/volume) 137 mmol/L 135-145 Serum or plasma potassium measurement (moles/volume) 3.9 mmol/L 3.6-5.0 Serum or plasma chloride measurement (moles/volume) 102 mmol/L 98-107 Carbon dioxide 26 mmol/L 21-32 Serum or plasma anion gap determination (moles/volume) 9 mmol/L 5-14 Serum or plasma urea nitrogen measurement (mass/volume) 7 mg/dL 7-18 Serum or plasma creatinine measurement (mass/volume) 0.72 mg/dL 0.60-1.30 Serum or plasma urea nitrogen/creatinine mass ratio 10 NRG Serum or plasma creatinine measurement with calculation of estimated glomerular filtration rate > NRG Serum or plasma glucose measurement (mass/volume) 107 mg/dL 70-105 Serum or plasma calcium measurement (mass/volume) 9.7 mg/dL 8.5-10.1 Serum or plasma total bilirubin measurement (mass/volume) 0.9 mg/dL 0.1-1.0 Serum or plasma alkaline phosphatase measurement (enzymatic activity/volume) 100 U/L 40-136 Serum or plasma aspartate aminotransferase measurement (enzymatic activity/volume) 18 U/L 5-34 Serum or plasma alanine aminotransferase measurement (enzymatic activity/volume) 11 U/L 0-55 Serum or plasma protein measurement (mass/volume) 7.0 g/dL 6.4-8.2 Serum or plasma albumin measurement (mass/volume) 4.0 g/dL 3.2-4.5 Digoxin - 07/14/16 18:00 Digoxin 0.59 ng/mL 0.80-2.00 Complete blood count (CBC) with automated white blood cell (WBC) differential - 07/14/16 18:00 Blood leukocytes automated count (number/volume) 9.1 10*3/uL 4.3-11.0 Blood erythrocytes automated count (number/volume) 4.01 10*6/uL 4.35-5.85 Venous blood hemoglobin measurement (mass/volume) 13.1 g/dL 11.5-16.0 Blood hematocrit (volume fraction) 39 % 35-52 Automated erythrocyte mean corpuscular volume 97 [foz_us] 80-99 Automated erythrocyte mean corpuscular hemoglobin (mass per erythrocyte) 33 pg 25-34 Automated erythrocyte mean corpuscular hemoglobin concentration measurement (mass/volume) 34 g/dL 32-36 Automated erythrocyte distribution width ratio 14.0 % 10.0- 14.5 Automated blood platelet count (count/volume) 223 10*3/uL 130-400 Automated blood platelet mean volume measurement 10.7 [foz_us] 7.4-10.4 Blood manual differential performed detection - 07/14/16 18:00 Blood monocytes/100 leukocytes 12 % NRG Manual blood segmented neutrophils/100 leukocytes 60 % NRG Blood band neutrophils/100 leukocytes 1 % NRG Manual blood lymphocytes/100 leukocytes 14 % NRG Manual eosinophils/100 leukocytes in nose 0 % NRG Manual blood basophils/100 leukocytes 0 % NRG Blood lymphocytes variant/100 leukocytes 13 % NRG Blood poikilocytosis detection by light microscopy SLIGHT NRG Blood rouleaux detection by light microscopy SLIGHT NRG Blood stomatocytes detection by light microscopy SLIGHT NRG PT panel in platelet poor plasma by coagulation assay - 01/31/18 15:53 Prothrombin time (PT) in platelet poor plasma by coagulation assay 20.7 s 12.2-14.7 INR in platelet poor plasma or blood by coagulation assay 1.8 0.8-1.4 Thyroid Stimulating Hormone - 03/26/18 14:15 TSH 1.81 mIU/mL 0.32-5.00 Other Culture - 06/09/18 14:30 PRELIM CULTURE RESULTS Abundant Coag Positive Staph SIS / ID to Follow MEDIA PLATED Setup at 18:27 on 06/09/2018 Sensi - 06/09/18 14:30 FINAL CULTURE RESULTS Methicillin Resistant Staphylococcus aureus (Isolate 1) Ampicillin/Sulbactam 16/8 Ampicillin >8 Amoxicillin/K Clavulanate >4/2 Ceftriaxone >32 Clindamycin <=0.5 Cefoxitin Screen >4 Ciprofloxacin >2 Daptomycin <=0.5 Erythromycin >4 Nitrofurantoin <=32 Gentamicin <=4 Gentamicin Synergy Screen N/R Inducible Clindamycin <=4/0.5 Levofloxacin 4 Linezolid 4 Moxifloxacin 2 Oxacillin >2 Penicillin >8 Rifampin <=1 Streptomycin Synergy N/R Synercid <=0.5 Trimethoprim/ Sulfamethoxazole <=0.5/9.5 Tetracycline <=4 Vancomycin 2 Protime - 06/17/18 13:15 INR 5.4 1.0-4.0 Protime 63.2 Sec 9.9-12.8 Protime - 06/19/18 11:45 INR 4.0 1.0-4.0 Protime 46.4 Sec 9.9-12.8 Protime - 06/23/18 11:30 INR 1.4 1.0-4.0 Protime 16.1 Sec 9.9-12.8 Protime - 06/27/18 13:41 INR 2.1 1.0-4.0 Protime 24.2 Sec 9.9-12.8 Protime - 07/11/18 11:50 INR 4.2 1.0-4.0 Protime 49.4 Sec 9.9-12.8 Protime - 07/21/18 13:00 INR 3.3 1.0-4.0 Protime 38.4 Sec 9.9-12.8 Protime - 07/25/18 13:02 INR 1.9 1.0-4.0 Protime 21.9 Sec 9.9-12.8 Protime - 08/01/18 12:00 INR 3.6 1.0-4.0 Protime 42.1 Sec 9.9-12.8 Protime - 08/08/18 11:30 INR 3.2 1.0-4.0 Protime 37.6 Sec 9.9-12.8 Encounters ACCT No. Visit Date/Time Discharge Status Pt. Type Provider Facility Loc./Unit Complaint [id number] 09/17/2018 10:39:00 09/17/2018 23:59:59 CLS Outpatient IRAM MOONEY, JS Partida [facility] CARD GERD [id number] 08/05/2018 09:40:00 08/05/2018 23:59:59 CLS Outpatient CHINYERE SNEED APRN [facility] WOUNDCARE [id number] 07/29/2018 11:02:00 07/29/2018 23:59:59 CLS Outpatient CHINYERE SNEED APRN [facility] WOUNDCARE [id number] 07/22/2018 09:18:00 07/22/2018 23:59:59 CLS Outpatient CHINYERE SNEED APRN [facility] WOUNDCARE [id number] 01/31/2018 14:48:00 01/31/2018 17:30:00 DIS Emergency JOSE MOONEY, HANNA Baker [facility] ER FALL-HEAD AND NECK PAIN [id number] 09/04/2017 10:21:00 09/04/2017 23:59:59 CLS Outpatient THONG RICHARDSON DO [facility] RAD DYSHAGIA [id number] 09/03/2017 08:57:00 09/03/2017 14:30:00 DIS Outpatient THONG RICHARDSON DO [facility] ENDO DYSPHAGIA [id number] 08/30/2017 05:36:00 08/30/2017 23:59:59 CLS Outpatient RICHARDSON THONG GUILLEN [facility] PREOP EGD [id number] 07/14/2016 17:52:00 07/16/2016 13:36:00 DIS Outpatient THONG RICHARDSON DO [facility] SDC ENDOSCOPY [id number] 04/27/2016 14:12:00 04/27/2016 23:59:59 CLS Outpatient JASBIR HI MD [facility] RT SOB [id number] 03/07/2016 08:04:00 03/07/2016 23:59:59 CLS Outpatient JS WALDEN MD [facility] CARD PAROXYSMAL AFIB,PALPITATIONS,HLP [id number] 02/22/2016 14:48:00 02/22/2016 23:59:59 CLS Outpatient JASBIR HI MD [facility] RAD SINUSES PRESSURE , DRAINAGE [id number] 02/02/2016 07:46:00 02/02/2016 23:59:59 CLS Outpatient JS WALDEN MD [facility] CARD PAROXYSMAL AFIB,PALPITATIONS,HLP [id number] 11/02/2014 15:15:00 11/02/2014 23:59:59 CLS Outpatient KEZIA OBANDO MD, FACC, FACP CCDS [facility] RAD OTHER DISEASES OF THE LUNG NEC [id number] 10/27/2014 17:55:00 10/28/2014 13:50:00 DIS Inpatient KEZIA OBANDO MD, FACC, FACP CCDS [facility] ICU CHEST PAIN,CHRONIC A FIB [id number] 03/16/2014 09:54:00 03/16/2014 23:59:59 CLS Outpatient JASBIR HI MD [facility] RAD INCREASED BACK PAIN [id number] 07/03/2013 21:13:00 07/04/2013 18:55:00 DIS Inpatient CAL SOTO MD [facility] 4TH DIG TOXICITY [id number] 04/19/2019 12:38:00 ACT Emergency VELIA MD, URSULA Partida [facility] ER CP/L ARM PAIN [id number] 07/15/2018 09:21:00 Document Registration [id number] 07/08/2018 08:54:00 Document Registration [id number] 03/03/2013 11:40:00 Document Registration [id number] 03/02/2013 07:41:00 Document Registration [id number] 04/24/2010 10:55:00 Document Registration [id number] 04/17/2010 16:57:00 Document Registration [id number] 08/08/2018 12:16:00 08/08/2018 23:59:00 DIS Outpatient Anette, Robyn [id number] 06/11/2018 09:51:00 08/08/2018 14:29:00 DIS Outpatient Fara Cohen [id number] 08/01/2018 12:57:00 08/01/2018 23:59:00 DIS Outpatient Anette, Robyn [id number] 07/25/2018 12:54:00 07/25/2018 23:59:00 DIS Outpatient Anette, Robyn [id number] 07/21/2018 13:42:00 07/21/2018 23:59:00 DIS Outpatient Fara Cohen [id number] 07/11/2018 12:36:00 07/11/2018 23:59:00 DIS Outpatient Anette, Robyn [id number] 06/27/2018 13:35:00 06/27/2018 23:59:00 DIS Outpatient Anette, Robyn [id number] 2018 12:36:00 2018 23:59:00 DIS Outpatient Anette, Robyn [id number] 06/19/2018 12:46:00 06/19/2018 23:59:00 DIS Outpatient Anette, Robyn [id number] 06/17/2018 14:03:00 06/17/2018 23:59:00 DIS Outpatient Anette, Robyn [id number] 06/09/2018 17:50:00 06/09/2018 23:59:00 DIS Outpatient Anette, Robyn [id number] 03/26/2018 17:29:00 03/26/2018 23:59:00 DIS Outpatient Anette, Robyn [id number] 11/02/2014 15:17:13 ACT Document Registration
[2019-04-19] MEDS ORDERED: NITROGLYCERIN 0.4 MG SL TABS BTL 25'S SL ONE (12:49)
[2019-04-19] MEDS ORDERED: ASPIRIN 81 MG CHEW (CHILDREN'S ASA) ONE (12:49)
[2019-04-19] MEDS: NITROGLYCERIN 0.4 MG SL TABS BTL 25'S SL PRN ×2 (12:55→12:56)
--- NOTE | 2019-04-19 12:59 | ED Chest Pain ---
General Chief Complaint: Chest Pain Stated Complaint: CP/L ARM PAIN Source: patient, family (daughter) Exam Limitations: no limitations History of Present Illness Date Seen by Provider: April 19, 2019 Time Seen by Provider: 12:39 Initial Comments The patient presents to the ER by private conveyance with her daughter and chief complaint that yesterday about 1700 she began to experience some left mid axillary chest pain which came on for little less than an hour and she took some Tylenol 325 mg and says it went away. This morning she woke up and she was having the same pain but much more Vela 8 out of 10 and it radiated to her left arm down to the elbow. She's having no sweats, nausea cough shortness of breath fevers or chills. No history of coronary disease but she doesn't history of atrial fibrillation on warfarin. She does take an 81 mg aspirin and a blood pressure medicine. She is allergic to statins. She does not smoke drink or use drugs. She is known to Dr. Mcknight. She just recently saw him within the last couple weeks and they've done a carotid ultrasound which was unchanged from prev ious around 40-50%. She denies any recent history of fall or trauma. He does not have a history of diabetes. Allergies and Home Medications Allergies Coded Allergies: Penicillins (Unverified Allergy, Intermediate, 04/17/10) Yzhklor-Qjj-Oka Reductase Inhibitor (Verified Allergy, Unknown, RASH, 09/03/17) latex (Verified Allergy, Unknown, 09/03/17) Home Medications Amlodipine Besylate 5 Mg Tablet, 5 MG PO HS, (Reported) Aspirin 81 Mg Tab.chew, 81 MG PO DAILY PRN, (Reported) Celecoxib 200 Mg Capsule, 200 MG PO DAILY PRN for depression, (Reported) Cholecalciferol (Vitamin D3) 1,000 Unit Tab.chew, 1,000 UNIT PO DAILY, (Reported) Dicyclomine HCl 10 Mg Capsule, 10 MG PO Q6H PRN for HEARTBURN, (Reported) Digoxin 125 Mcg Tablet, 125 MCG PO DAILY, (Reported) Dorzolamide HCl 10 Ml Drops, 1 DROP OU BID, (Reported) Lisinopril 20 Mg Tablet, 20 MG PO DAILY, (Reported) Metoclopramide HCl 10 Mg Tablet, 10 MG PO Q6H PRN for NAUSEA/VOMITING-1ST LINE, (Reported) Hilliard 3 Polyunsat Fatty Acids 1,000 Mg Cap, 1,000 MG PO DAILY, (Reported) Oxybutynin Chloride 15 Mg Tab.er.24, 15 MG PO DAILY PRN for bladder control, (Re ported) Pantoprazole Sodium 40 Mg Tablet.dr, 40 MG PO BID, (Reported) Raloxifene HCl 60 Mg Tablet, 60 MG PO HS PRN for joint pain, (Reported) Warfarin Sodium 3 Mg Tablet, 1.5-3 MG PO DAILY@1800, (Reported) take 1/2 of 3mg tab on Mon,Wed,Sat Patient Home Medication List Home Medication List Reviewed: Yes Review of Systems Review of Systems Constitutional: No chills, No diaphoresis EENTM: No Blurred Vision, No Double Vision Respiratory: Denies Cough, Denies Shortness of Air, Denies Wheezing Cardiovascular: Chest Pain (not reproducible by deep inspiration), Edema (baseline, chronic, trace bilateral); Denies Palpitations, Denies Syncope Gastrointestinal: Denies Abdomen Distended, Denies Abdominal Pain, Denies Constipated, Denies Diarrhea, Denies Nausea Genitourinary: Denies Burning, Denies Discharge Musculoskeletal: No back pain, No joint pain Skin: No pruritus, No rash Psychiatric/Neurological: Denies Anxiety, Denies Depressed; Other (dementia) Past Jahknzm-Ryhtqb-Xnuhje Hx Patient Social History Alcohol Use: Occasionally Uses Recreational Drug Use: No Smoking Status: Never a Smoker Recent Foreign Travel: No Contact w/Someone Who Travel: No Recent Hopitalizations: No Immunizations Up To Date Tetanus Booster (TDap): Unknown Date of Pneumonia Vaccine: Sep 26, 2012 Date of Influenza Vaccine: Sep 16, 2014 Seasonal Allergies Seasonal Allergies: No Past Medical History Surgeries: Yes (HYSTERECTOMY) Appendectomy, Hysterectomy Respiratory: No Cardiac: Yes Atrial Fibrillation, Hypertension Neurological: Yes TIA Reproductive Disorders: No Female Reproductive Disorders: 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 History: Hysterectomy Sexually Transmitted Disease: No HIV/AIDS: No Gastrointestinal: Yes Hiatal Hernia, Ulcer Musculoskeletal: Yes (KNEE) Osteoporosis, Arthritis, Chronic Back Pain Endocrine: No Cataract Loss of Vision: Bilateral Cancer: No Psychosocial: Yes Anxiety Integumentary: No Blood Disorders: No Adverse Reaction/Blood Tranf: No (N/A) Family Medical History No Pertinent Family Hx Physical Exam Vital Signs Vital Signs - First Documented 04/19/19 12:45 Temp 97.6 Pulse 79 Resp 20 B/P (MAP) 175/70 (105) Pulse Ox 97 O2 Delivery Room Air Capillary Refill : Less Than 3 Seconds Height, Weight, BMI Height: 5'2.00" Weight: 128lbs. 9.0oz. 58.996399ex; 21.2 BMI Method:Stated General Appearance: No Apparent Distress, WD/WN HEENT: PERRL/EOMI, TMs Normal, Normal ENT Inspection, Pharynx Normal, Moist Mucous Membranes Neck: Full Range of Motion, Normal Inspection Respiratory: No Chest Non Tender; Lungs Clear, Normal Breath Sounds, No Accessory Muscle Use, No Respiratory Distress, Other (ribs in the left axillary line at about the level of the nipple are tender to palpation) Cardiovascular: Regular Rate, Rhythm, No Edema, Normal Peripheral Pulses Gastrointestinal: Normal Bowel Sounds, Non Tender, Soft Neurologic/Psychiatric: Alert, Oriented x3 Skin: Normal Color, Warm/Dry Progress/Results/Core Measures Results/Orders Lab Results Laboratory Tests Test 04/19/19 12:48 Range/Units White Blood Count 6.4 4.3-11.0 10^3/uL Red Blood Count 4.01 L 4.35-5.85 10^6/uL Hemoglobin 12.8 11.5-16.0 G/DL Hematocrit 38 35-52 % Mean Corpuscular Volume 94 80-99 FL Mean Corpuscular Hemoglobin 32 25-34 PG Mean Corpuscular Hemoglobin Concent 34 32-36 G/DL Red Cell Distribution Width 15.4 H 10.0-14.5 % Platelet Count 238 130-400 10^3/uL Mean Platelet Volume 10.5 H 7.4-10.4 FL Neutrophils (%) (Auto) 54 42-75 % Lymphocytes (%) (Auto) 29 12-44 % Monocytes (%) (Auto) 15 H 0-12 % Eosinophils (%) (Auto) 1 0-10 % Basophils (%) (Auto) 0 0-10 % Neutrophils # (Auto) 3.5 1.8-7.8 X 10^3 Lymphocytes # (Auto) 1.9 1.0-4.0 X 10^3 Monocytes # (Auto) 1.0 0.0-1.0 X 10^3 Eosinophils # (Auto) 0.1 0.0-0.3 10^3/uL Basophils # (Auto) 0.0 0.0-0.1 10^3/uL Prothrombin Time 23.7 H 12.2-14.7 SEC INR Comment 2.0 H 0.8-1.4 Activated Partial Thromboplast Time 35 24-35 SEC Sodium Level 139 135-145 MMOL/L Potassium Level 4.1 3.6-5.0 MMOL/L Chloride Level 105 98-107 MMOL/L Carbon Dioxide Level 22 21-32 MMOL/L Anion Gap 12 5-14 MMOL/L Blood Urea Nitrogen 10 7-18 MG/DL Creatinine 0.84 0.60-1.30 MG/DL Estimat Glomerular Filtration Rate > 60 BUN/Creatinine Ratio 12 Glucose Level 119 H 70-105 MG/DL Calcium Level 9.8 8.5-10.1 MG/DL Corrected Calcium 9.8 8.5-10.1 MG/DL Magnesium Level 2.0 1.8-2.4 MG/DL Total Bilirubin 0.5 0.1-1.0 MG/DL Aspartate Amino Transf (AST/SGOT) 24 5-34 U/L Alanine Aminotransferase (ALT/SGPT) 13 0-55 U/L Alkaline Phosphatase 100 40-136 U/L Myoglobin 67.7 10.0-92.0 NG/ML Troponin I < 0.028 <0.028 NG/ML B-Type Natriuretic Peptide 69.1 <100.0 PG/ML Total Protein 6.9 6.4-8.2 GM/DL Albumin 4.0 3.2-4.5 GM/DL My Orders Orders - VELIA,URSULA J Ekg Tracing (04/19/19 12:38) Continuous Ekg Monitoring (04/19/19 12:38) Cbc With Automated Diff (04/19/19 12:51) Magnesium (04/19/19 12:51) Chest 1 View, Ap/Pa Only (04/19/19 12:51) Cardiac Profile 1 (04/19/19 12:51) Comprehensive Metabolic Panel (04/19/19 12:51) Myoglobin Serum (04/19/19 12:51) Protime With Inr (04/19/19 12:51) Partial Thromboplastin Time (04/19/19 12:51) O2 (04/19/19 12:51) Lipid Panel (04/20/19 06:00) Ed Iv/Invasive Line Start (04/19/19 12:51) BNP (04/19/19 12:51) Nitroglycerin 0.4 Mg Btl 25's (Nitrostat (04/19/19 13:00) Aspirin Chewable Tablet (Baby Aspirin Ch (04/19/19 13:00) Nitroglycerin 0.4 Mg Btl 25's (Nitrostat (04/19/19 12:49) Aspirin Chewable Tablet (Baby Aspirin Ch (04/19/19 12:49) Ondansetron Injection (Zofran Injectio (04/19/19 13:15) Digoxin (04/19/19 14:01) Medications Given in ED Current Medications Medications Dose Ordered Sig/Andrea Route Start Time Stop Time Status Last Admin Dose Admin Aspirin 324 mg ONCE ONCE PO 04/19/19 13:00 04/19/19 13:01 DC 04/19/19 12:53 324 MG Nitroglycerin 0.4 mg UD PRN SL 04/19/19 13:00 04/19/19 12:56 0.4 MG Vital Signs/I&O 04/19/19 04/19/19 12:45 12:45 Temp 97.6 Pulse 79 Resp 20 B/P (MAP) 175/70 (105) Pulse Ox 97 O2 Delivery Room Air Progress Progress Note #1: Time: 12:56 Progress Note Reproducible chest pain that radiates to her left arm. Back nontender. We'll start with some aspirin and nitroglycerin. EKG unrevealing. Chest x-ray. She is not tachycardic nor hypoxic nor claiming any shortness of breath so a PE seems less likely. She has no history to support development of a PE. The edema in her bilateral lower extremities is trace and baseline. Echocardiogram [address] Mcknight: EF 55-65%. Basal hypertrophy and grade 2 diastolic dysfunction. History of GERD, TIA, hypertension, hyperlipidemia, paroxysmal atrial fibrillation. ED ACS 19 points. Not low risk. This patient is not a candidate for early discharge and should receive a standard chest pain evaluation with delayed troponin testing. Progress Note #2: Time: 13:45 Progress Note By the time the patient was getting her aspirin and nitroglycerin her pain was waned down to a 2 out of 10. She did have a bout of nausea but before she could get any Zofran she said that also had passed. She is strip tank tender in her mid axillary line on her ribs. She still denies any fall. No ecchymoses. She said she did have a fall about a year ago. She's not overly eager to do an observation stay but will if the windows desktop support recommends it. Initial ECG Impression Date: April 19, 2019 Initial ECG Impression Time: 12:43 Initial ECG Rate: 75 Initial ECG Rhythm: Normal Sinus Initial ECG Intervals: Normal Initial ECG Impression: Normal, Nonspecific Changes Comment No clinically significant ST elevation or depression. LVH noted. Diagnostic Imaging Diagonstic Imaging: Xray Plain Films/CT/US/NM/MRI: chest (1v) Comments [facility], [place] NAME: EMIL ESPARZA [facility] REC#: [id number] PT STATUS: REG ER : 1930 PHYSICIAN: URSULA GUNN MD ADMIT DATE: 04/19/19/ER Draft Date of Exam:04/19/19 CHEST 1 VIEW, AP/PA ONLY INDICATION: Left-sided chest pain, shoulder pain. TECHNIQUE: Single-view chest, 1:02 p.m. CORRELATION STUDY: 07/14/2016. FINDINGS: Given the differences in technique, heart size, mediastinum, and vasculature are overall stable and unremarkable. Lung hackett are hyperinflated but clear. Rightward curvature of the thoracic spine. IMPRESSION: 1. Stable chest demonstrates no acute abnormality. Dictated on workstation # [id number] Dict: 04/19/19 1312 Trans: 04/19/19 1321 [id number] Interpreted by: LIBORIO AGUILERA DO Electronically signed by: Reviewed: Reviewed by Me Departure Communication (Admissions) Time/Spoke to Admitting Phy: 14:25 Discussed the case lab imaging EKG findings with Dr. Shirley she agrees to observe the patient. Time/Spoke to Consulting Phy: 14:15 Discussed the labs, case, EKG findings with Dr. Read and he would prefer to consult if medicine will admit. Impression Primary Impression: Chest pain Qualified Codes: R07.9 - Chest pain, unspecified Disposition: ADMITTED INPATIENT Condition: Stable Admissions Decision to Admit Reason: Admit from ER (General) Decision to Admit/Date: April 19, 2019 Time/Decision to Admit Time: 14:00 Departure-Patient Inst. Referrals: LAUREL CADENA MD (PCP) Primary Care Physician DIANE BENITES (Family) Primary Care Physician URSULA GUNN April 19, 2019 12:59
[2019-04-19] MEDS ORDERED: ASPIRIN 81 MG CHEW (CHILDREN'S ASA) PO ONE (13:00)
[2019-04-19 13:04] LABS: BASOPHILS % (AUTO) 0 % (0-10); EOSINOPHILS # (AUTO) 0.1 10^3/uL (0.0-0.3); EOSINOPHILS % (AUTO) 1 % (0-10); HEMATOCRIT 38 % (35-52); HEMOGLOBIN 12.8 G/DL (11.5-16.0); LYMPHOCYTES # (AUTO) 1.9 X 10^3 (1.0-4.0); LYMPHOCYTES % (AUTO) 29 % (12-44); MEAN CORPUSCULAR HEMOGLOBIN 32 PG (25-34); MEAN CORPUSCULAR HGB CONC 34 G/DL (32-36); MEAN CORPUSCULAR VOLUME 94 FL (80-99); MEAN PLATELET VOLUME 10.5 FL (7.4-10.4); MONOCYTES % (AUTO) 15 % (0-12); NEUTROPHILS # (AUTO) 3.5 X 10^3 (1.8-7.8); NEUTROPHILS % (AUTO) 54 % (42-75); PLATELET COUNT 238 10^3/uL (130-400); RED CELL DISTRIBUTION WIDTH 15.4 % (10.0-14.5); WHITE BLOOD COUNT 6.4 10^3/uL (4.3-11.0)
[2019-04-19 13:07] LABS: PROTHROMBIN TIME PATIENT 23.7 SEC (12.2-14.7)
[2019-04-19] MEDS ORDERED: ONDANSETRON 4 MG/2 ML (SDV) Z0FRAN IVP ONE (13:15)
[2019-04-19 13:17] LABS: ALANINE AMINOTRANSFERASE 13 U/L (0-55); ALKALINE PHOSPHATASE 100 U/L (40-136); BILIRUBIN,TOTAL 0.5 MG/DL (0.1-1.0); BUN/CREATININE RATIO 12; CALCIUM 9.8 MG/DL (8.5-10.1); CARBON DIOXIDE 22 MMOL/L (21-32); CHLORIDE 105 MMOL/L (98-107); CREATININE SERUM 0.84 MG/DL (0.60-1.30); GFR ESTIMATED > 60; GLUCOSE 119 MG/DL (70-105); POTASSIUM 4.1 MMOL/L (3.6-5.0); SODIUM 139 MMOL/L (135-145); TOTAL PROTEIN 6.9 GM/DL (6.4-8.2)
--- NOTE | 2019-04-19 13:21 | Diagnostic Imaging Report ---
INDICATION: Left-sided chest pain, shoulder pain. TECHNIQUE: Single-view chest, 1:02 p.m. CORRELATION STUDY: 07/14/2016. FINDINGS: Given the differences in technique, heart size, mediastinum, and vasculature are overall stable and unremarkable. Lung hackett are hyperinflated but clear. Rightward curvature of the thoracic spine. IMPRESSION: 1. Stable chest demonstrates no acute abnormality. Dictated by: Dictated on workstation # [id number]
[2019-04-19 15:45] VITALS: BP 170/75
--- NOTE | 2019-04-19 15:50 | Consultation-Cardiology ---
HPI-Cardiology Cardiology Consultation: Date of Consultation 04/19/19 Time Seen by a Provider: 16:40 Date of Admission Attending Physician Lachelle Shirley MD Admitting Physician Fara Cohen MD Consulting Physician KEZIA OBANDO MD, MA, FACP, FACC, FSCAI, CCDS Primary day haul or farm charter bus driver: Dr Mcknight HPI: Chief Complaint: CC: Chest discomfort HPI 88 yo woman who has been having chest pain: L inframammary, sharp, lasting a few seconds, worse with palpation, mild to mod in intensity, w/o radiation, w/o associated symptoms, w/o aggravating or relieving factors. These started yesterday and she had a few episodes this morning. Chronic mild exertional shortness of breath. No recent palp. No syncope Review of Systems-Cardiology Review of Systems Constitutional: No weight loss Eyes: No vision change Ears/Nose/Throat: No ear discharge, No nasal drainage, No recent hearing loss Respiratory: As described under HPI Cardiovascular: As described under HPI Gastrointestinal: No diarrhea, No nausea, No vomiting Genitourinary: No dysuria, No urine frequency changes Musculoskeletal: No joint pain Skin: No rash, No ulcerations Psychiatric/Neurological: No seizure, No focal weakness, No syncope Hematologic: No bleeding abnormalities MIC-Xajiag-Pymxsg Hx Patient Social History Alcohol Use: Occasionally Uses Recreational Drug Use: No Smoking Status: Never a Smoker Recent Foreign Travel: No Recent Infectious Disease Expo: No Immunizations Up To Date Tetanus Booster (TDap): Unknown Date of Pneumonia Vaccine: Sep 26, 2012 Date of Influenza Vaccine: Sep 16, 2014 Past Medical History PMH As described under Assessment. Family Medical History Family Medical History: Does not report fam h/o early CAD or SCD Allergies and Home Medications Allergies Coded Allergies: Penicillins (Unverified Allergy, Intermediate, 04/17/10) Vgvafwa-Dyc-Ply Reductase Inhibitor (Verified Allergy, Unknown, RASH, 09/03/17) latex (Verified Allergy, Unknown, 09/03/17) Home Medications Amlodipine Besylate 5 Mg Tablet, 5 MG PO HS, (Reported) Aspirin 81 Mg Tab.chew, 81 MG PO DAILY PRN, (Reported) Celecoxib 200 Mg Capsule, 200 MG PO DAILY PRN for depression, (Reported) Cholecalciferol (Vitamin D3) 1,000 Unit Tab.chew, 1,000 UNIT PO DAILY, (Reported) Dicyclomine HCl 10 Mg Capsule, 10 MG PO Q6H PRN for HEARTBURN, (Reported) Digoxin 125 Mcg Tablet, 125 MCG PO DAILY, (Reported) Dorzolamide HCl 10 Ml Drops, 1 DROP OU BID, (Reported) Lisinopril 20 Mg Tablet, 20 MG PO DAILY, (Reported) Metoclopramide HCl 10 Mg Tablet, 10 MG PO Q6H PRN for NAUSEA/VOMITING-1ST LINE, (Reported) Marvell 3 Polyunsat Fatty Acids 1,000 Mg Cap, 1,000 MG PO DAILY, (Reported) Oxybutynin Chloride 15 Mg Tab.er.24, 15 MG PO DAILY PRN for bladder control, (Reported) Pantoprazole Sodium 40 Mg Tablet.dr, 40 MG PO BID, (Reported) Raloxifene HCl 60 Mg Tablet, 60 MG PO HS PRN for joint pain, (Reported) Warfarin Sodium 3 Mg Tablet, 1.5-3 MG PO DAILY@1800, (Reported) take 1/2 of 3mg tab on Mon,Wed,Fri Patient Home Medication List Home Medication List Reviewed: Yes Physical Exam-Cardiology Physical Exam Vital Signs/I&O 04/19/19 04/19/19 04/19/19 04/19/19 12:45 12:45 15:32 15:48 Temp 97.6 Pulse 79 64 71 Resp 20 16 B/P (MAP) 175/70 (105) 154/75 (101) Pulse Ox 97 97 O2 Delivery Room Air Capillary Refill : Less Than 3 Seconds Constitutional: AAO x 3, well-developed, other (thin-appearing) HEENT: PERRL, EOMI; No xanthelasmas are seen Neck: carotid pulses are 2 + bilaterally, with good upstrokes Respiratory: No accessory muscle use; other (good bilat air entry) Cardiovascular: regular rate-rhythm, S1 and S2, systolic murmur (soft ROSELINE at card base) Gastrointestinal: No tender; soft; No guarding, No rebound; audible bowel sounds Extremities: No clubbing, No cyanosis, No significant edema Neurologic/Psychiatric: oriented x 3, grossly intact, power is 5/5 both on sides Skin: No rash on exposed areas, No ulcerations on exposed areas Data Review Labs Laboratory Tests 04/19/19 12:48: White Blood Count 6.4, Red Blood Count 4.01L, Hemoglobin 12.8, Hematocrit 38, Mean Corpuscular Volume 94, Mean Corpuscular Hemoglobin 32, Mean Corpuscular Hemoglobin Concent 34, Red Cell Distribution Width 15.4H, Platelet Count 238, Mean Platelet Volume 10.5H, Neutrophils (%) (Auto) 54, Lymphocytes (%) (Auto) 29, Monocytes (%) (Auto) 15H, Eosinophils (%) (Auto) 1, Basophils (%) (Auto) 0, Neutrophils # (Auto) 3.5, Lymphocytes # (Auto) 1.9, Monocytes # (Auto) 1.0, Eosinophils # (Auto) 0.1, Basophils # (Auto) 0.0, Prothrombin Time 23.7H, INR Comment 2.0H, Activated Partial Thromboplast Time 35, Sodium Level 139, Potassi um Level 4.1, Chloride Level 105, Carbon Dioxide Level 22, Anion Gap 12, Blood Urea Nitrogen 10, Creatinine 0.84, Estimat Glomerular Filtration Rate > 60, BUN/Creatinine Ratio 12, Glucose Level 119H, Calcium Level 9.8, Corrected Calcium 9.8, Magnesium Level 2.0, Total Bilirubin 0.5, Aspartate Amino Transf (AST/SGOT) 24, Alanine Aminotransferase (ALT/SGPT) 13, Alkaline Phosphatase 100, Myoglobin 67.7, Troponin I < 0.028, B-Type Natriuretic Peptide 69.1, Total Protein 6.9, Albumin 4.0, Digoxin Level 0.96 Laboratory Tests 04/19/19 12:48 A/P-Cardiology Assessment/Admission Diagnosis Chest discomfort Paroxysmal atrial fibrillation MPI of March 2016: No ischemia or infarct with normal EF Chronic oral anticoag with warfarin (pt preference) History of Digoxin toxicity Abnormal ECG: NSR with probable LVH with repol abnormality (ECG of 04/19/19) Hypertension, by history Hyperlipidemia. Intolerant to statins Moderate bilateral carotid stenosis per u/s of March 2019 Gastric esophageal reflux disease Discussion and Recomendations * Continue previous card regimen * Serial cardiac enzymes and ECG to eval for acute cor syndrome * I reviewed her records at Dr Mcknight's * I reviewed her CV issues with her and answered questions KEZIA OBANDO MD FACP FAC CCDS April 19, 2019 15:50
[2019-04-19 16:00] VITALS: BP 159/70
[2019-04-19] MEDS ORDERED: ANTACID SUSP 30 ML UDC (MYLANTA) PO PRN (16:00)
[2019-04-19] MEDS ORDERED: ONDANSETRON 4 MG/2 ML (SDV) Z0FRAN IVP PRN (16:00)
[2019-04-19] MEDS ORDERED: METOCLOPRAMIDE 10 MG (REGLAN) TAB PO PRN (16:00)
[2019-04-19] MEDS ORDERED: morphine INJ 4 MG/ML 1 ML (VIAL/SYRINGE) IVP PRN (16:00)
[2019-04-19] MEDS ORDERED: ACETAMINOPHEN 325 MG TABLET PO PRN (16:00)
[2019-04-19 19:37] VITALS: BP 157/69
[2019-04-19] MEDS ORDERED: amLODIPine 5 MG (NORVASC) TAB PO SCH (21:00)
[2019-04-19] MEDS ORDERED: warFARin 3 MG (COUMADIN) TAB PO SCH (21:00)
[2019-04-20] VITALS: BP 113/54
[2019-04-20 01:04] LABS: BASOPHILS # (AUTO) 0.1 10^3/uL (0.0-0.1); BASOPHILS % (AUTO) 1 % (0-10); EOSINOPHILS # (AUTO) 0.1 10^3/uL (0.0-0.3); EOSINOPHILS % (AUTO) 2 % (0-10); HEMATOCRIT 34 % (35-52); HEMOGLOBIN 11.6 G/DL (11.5-16.0); LYMPHOCYTES # (AUTO) 1.8 X 10^3 (1.0-4.0); LYMPHOCYTES % (AUTO) 32 % (12-44); MEAN CORPUSCULAR HEMOGLOBIN 32 PG (25-34); MEAN CORPUSCULAR HGB CONC 34 G/DL (32-36); MEAN CORPUSCULAR VOLUME 94 FL (80-99); MEAN PLATELET VOLUME 10.3 FL (7.4-10.4); MONOCYTES % (AUTO) 17 % (0-12); NEUTROPHILS # (AUTO) 2.7 X 10^3 (1.8-7.8); NEUTROPHILS % (AUTO) 48 % (42-75); PLATELET COUNT 214 10^3/uL (130-400); RED CELL DISTRIBUTION WIDTH 15.3 % (10.0-14.5); WHITE BLOOD COUNT 5.6 10^3/uL (4.3-11.0)
[2019-04-20 01:23] LABS: BUN/CREATININE RATIO 12; CALCIUM 8.8 MG/DL (8.5-10.1); CARBON DIOXIDE 22 MMOL/L (21-32); CHLORIDE 108 MMOL/L (98-107); CHOLESTEROL 192 MG/DL (< 200); CREATININE SERUM 0.74 MG/DL (0.60-1.30); GFR ESTIMATED > 60; GLUCOSE 99 MG/DL (70-105); HDL CHOLESTEROL 55 MG/DL (40-60); POTASSIUM 3.9 MMOL/L (3.6-5.0); SODIUM 139 MMOL/L (135-145); TRIGLYCERIDES 70 MG/DL (<150); VLDL CHOLESTEROL 14 MG/DL (5-40)
[2019-04-20 04:00] VITALS: BP 110/43
--- NOTE | 2019-04-20 07:43 | Diagnostic Imaging Report ---
Indication: Shortness breath. Comparison: 04/19/2019. Findings: Single view of the chest demonstrates stable cardiac enlargement without overt pulmonary edema. There is no pneumothorax or effusion. Osseous structures are stable. Impression: Stable cardiac enlargement without pulmonary edema or infiltrate. Dictated by: Dictated on workstation # [id number]
[2019-04-20 08:00] VITALS: BP 131/50
[2019-04-20] MEDS ORDERED: REGADENOSON 0.4 MG/5 ML SYR (LEXISCAN) IV ONE ×2 (09:00→13:43)
[2019-04-20] MEDS ORDERED: PANTOPRAZOLE 40 MG (PROTONIX) TAB PO SCH (09:00)
[2019-04-20] MEDS ORDERED: lisINopril 20 MG (PRINIVIL) TABLET PO SCH (09:00)
[2019-04-20] MEDS ORDERED: ASPIRIN E.C. 81 MG (ECOTRIN) TAB PO SCH (09:00)
[2019-04-20] MEDS ORDERED: DIGOXIN 0.125 MG (LANOXIN) TAB PO SCH (09:00)
--- NOTE | 2019-04-20 09:06 | Cardiology Progress Note ---
Subjective Date Seen by Provider: April 20, 2019 Time Seen by Provider: 08:57 Subjective/Events-last exam Patient is in bed, feeling better, no further episodes of chest pain, no shortness of breath Reported having chest pain yesterday described as dull achiness on the left side of her chest surgery with some shortness of breath and nausea, relieved after receiving nitroglycerin, no further episodes were reported. Event since admission were reviewed Review of Systems General: No Chills, No Night Sweats, No Fatigue, No Malaise, No Appetite, No Other HEENT: No Head Aches, No Visual Changes, No Eye Pain, No Ear Pain, No Dysphasia, No Sinus Congestion, No Post Nasal Drip, No Sore Throat, No Other Pulmonary: No Dyspnea, No Cough, No Pleuritic Chest Pain, No Other Cardiovascular: No: Chest Pain, Palpitations, Orthopnea, Paroxysmal Noc. Dyspnea, Edema, Lt Headedness, Other Objective-Cardiology Exam Last Set of Vital Signs Vital Signs 04/20/19 04/20/19 04/20/19 07:00 08:00 08:37 Temp 97.8 Pulse 65 Resp 20 B/P (MAP) 131/50 (77) Pulse Ox 93 O2 Delivery Room Air Capillary Refill : Less Than 3 Seconds I&O Intake and Output 04/20/19 00:00 Intake Total 390 ml Balance 390 ml Intake Oral 390 ml # Voids 2 Daily Weight Change No General: Alert, Oriented X3, Cooperative HEENT: Atraumatic, PERRLA Neck: Supple, No JVD, No Thyromegaly Lungs: Clear to Auscultation, Normal Air Movement Heart: Regular Rate, Normal S1, Normal S2, No Murmurs Abdomen: Normal Bowel Sounds, Soft, No Tenderness, No Hepatosplenomegaly, No M asses Extremities: No Clubbing, No Cyanosis, No Edema, Normal Pulses, No Tende rness/Swelling Skin: No Rashes, No Breakdown, No Significant Lesion Neuro: Normal Gait, Normal Speech, Strength at 5/5 X4 Ext, Normal Tone, Sensation Intact Psych/Mental Status: Mental Status NL, Mood NL Results Lab Laboratory Tests 04/19/19 12:48 04/20/19 01:01 A/P-Cardiology Admission Diagnosis Chest pain Chronic atrial fibrillation Hypertension Hyperlipidemia Assessment/Plan Chest pain nonspecific etiology, atypical in presentation, no acute EKG changes, cardiac enzymes were negative, no further episodes of chest pain, planning to evaluate stress test No previous history of coronary artery disease, last stress test was done in 2015, planning to repeat stress test. Paroxysmal atrial fibrillation, currently in sinus rhythm. Continue to monitor [id number] score is 6, yearly risk of stroke without oral anticoagulation is 9.8 percent. Patient is maintained on Coumadin, continue to monitor INR History of Digoxin toxicity in the past, continue to monitor. 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 Hypertension, continue to monitor blood pressure Hyperlipidemia, monitor lipids Moderate bilateral carotid stenosis, ultrasound was done in November 2017, continue to monitor Gastric esophageal reflux disease Question of a history of TIA Clinical Quality Measures DVT/VTE Risk/Contraindication: Risk Factor Score Per Nursin RFS Level Per Nursing on Admit: 3=High JS WALDEN MD April 20, 2019 09:06
[2019-04-20] MEDS ORDERED: DIGO125T18 PO (10:34)
[2019-04-20] MEDS ORDERED: ACET-2650 PO (10:34)
[2019-04-20] MEDS ORDERED: DORZ10DR18 OU (10:34)
[2019-04-20] MEDS ORDERED: PANT20TA3 PO (10:34)
[2019-04-20] MEDS ORDERED: WARF3TAB56 PO (10:34)
[2019-04-20] MEDS ORDERED: FLUT16SP22 NS (10:34)
[2019-04-20] MEDS ORDERED: POLY15DR14 OU (10:34)
[2019-04-20] MEDS ORDERED: LISI40TA PO (10:34)
[2019-04-20] MEDS ORDERED: OMEG1TAB5 PO (10:39)
[2019-04-20] MEDS ORDERED: ASPI-983 PO (10:39)
[2019-04-20] MEDS ORDERED: ACET-168 PO (10:39)
[2019-04-20] MEDS ORDERED: VITA1CAP PO (10:39)
--- NOTE | 2019-04-20 10:42 | NUR ---
CALLED AND WENT OVER THE EXT MED HX WITH THE PATIENTS DAUGHTER RODO, SHE ALSO LISTED HER OTC MEDS.
[2019-04-20 12:00] VITALS: BP 144/62
--- NOTE | 2019-04-20 18:04 | History & Physical-Hospitalist ---
History of Present Illness HPI/Chief Complaint The patient is an 88-year-old white female who began having intermittent chest pain in the left lower chest. She stated that she would call this discomfort a tightness more than a sharp pain. She ultimately came to the emergency room. The pain was relieved by nitroglycerin. She has a past history of paroxysmal atrial fibrillation. Her serial troponin I has remained within normal limits. She has previously been followed by Dr. Mcknight. Date Seen 04/20/19 Attending Physician Lachelle Shirley MD PCP Fara Cohen MD Referring Physician Date of Admission April 19, 2019 at 14:30 Home Medications & Allergies Home Medications Reviewed patient Home Medication Reconciliation performed by pharmacy medication reconciliations radio frequency technician and/or nursing. Patients Allergies have been reviewed. Allergies Allergies Coded Allergies Penicillins (Unverified Allergy, Intermediate, 04/17/10) Meakxzc-Hvn-Feh Reductase Inhibitor (Verified Allergy, Unknown, RASH, 09/03/17) latex (Verified Allergy, Unknown, 09/03/17) Past Sjxbhha-[id number]-Ocudfb Hx Patient Social History Alcohol Use: Occasionally Uses Recreational Drug Use: No Smoking Status: Never a Smoker Physical Abuse Screen: No Sexual Abuse: No Recent Foreign Travel: No Contact w/other who traveled: No Recent Hopitalizations: No Recent Infectious Disease Expo: No Immunizations Up To Date Tetanus Booster (TDap): Unknown Date of Pneumonia Vaccine: Jan 30, 2019 Date of Influenza Vaccine: Sep 16, 2014 Seasonal Allergies Seasonal Allergies: No Past Medical History Surgeries: Appendectomy, Hysterectomy Cardiac: Atrial Fibrillation, Hypertension Neurological: TIA Reproductive: No Sexually Transmitted Disease: No HIV/AIDS: No Female Reproductive Disorders: Denies Hysterectomy Gastrointestinal: Hiatal Hernia, Ulcer Musculoskeletal: Osteoporosis, Arthritis, Chronic Back Pain HEENT: Cataract Loss of Vision: Bilateral Psychosocial: Anxiety History of Blood Disorders: No Adverse Reaction to Blood Anderson: No (N/A) Family History Patient reports no known family medical history. No Pertinent Family Hx Review of Systems Constitutional: see HPI EENTM: no symptoms reported Respiratory: no symptoms reported Cardiovascular: see HPI, chest pain Gastrointestinal: no symptoms reported Genitourinary: no symptoms reported Musculoskeletal: no symptoms reported Skin: no symptoms reported Psychiatric/Neurological: No Symptoms Reported Physical Exam Physical Exam Vital Signs Vital Signs - First Documented 04/19/19 12:45 Temp 97.6 Pulse 79 Resp 20 B/P (MAP) 175/70 (105) Pulse Ox 97 O2 Delivery Room Air Capillary Refill : Less Than 3 Seconds Height, Weight, BMI Height: 5'2.00" Weight: 126lbs. 9.0oz. [id number]; 23.2 BMI Method:Stated General Appearance: No Apparent Distress Eyes: Bilateral Eye Normal Inspection HEENT: Normal ENT Inspection Neck: Full Range of Motion Respiratory: Chest Non Tender, Lungs Clear, Normal Breath Sounds, No Accessory Muscle Use, No Respiratory Distress; No Accessory Muscle Use, No Crackles, No Decreased Breath Sounds, No Expiration, No Inspiration, No Pleural Rub, No Rales, No Respiratory Distress, No Rhonci, No Stridor, No Wheezing, No Other Cardiovascular: Regular Rate, Rhythm, No Edema, No Gallop, No JVD, No Murmur, Normal Peripheral Pulses Gastrointestinal: Normal Bowel Sounds, No Organomegaly Extremity: Normal Capillary Refill, Normal Inspection, Normal Range of Motion, Non Tender, No Calf Tenderness, Pedal Edema (minimal edema at the dorsum of the feet bilaterally) Neurologic/Psychiatric: Alert, Oriented x3 Skin: Normal Color, Warm/Dry Lymphatic: No Adenopathy Results Results/Procedures Labs Laboratory Tests 04/19/19 12:48 04/20/19 01:01 Patient resulted labs reviewed. Assessment/Plan Admission Diagnosis Chest pain suggesting angina pectoris. 2.paroxysmal atrial fibrillation. Admission Status: Observation Clinical Quality Measures DVT/VTE Risk/Contraindication: Risk Factor Score Per Nursin RFS Level Per Nursing on Admit: 3=High JERSEY DIOR MD April 20, 2019 18:04
--- NOTE | 2019-04-20 18:06 | Discharge Inst-Simple/Standard ---
Discharge Inst-Standard Patient Instructions/Follow Up Plan of Care/Instructions/FU: Resume medications as listed on the discharge sequence. Follow-up appointment with Dr. Mcknight. Activity as Tolerated: Yes Goal: Maintain recent health status. Discharge Diet: No Restrictions Return to The Hospital For: Unrelenting chest pain. JERSEY DIOR MD April 20, 2019 18:06
[2019-04-20] MEDS ORDERED: [UNRECOGNIZED DRUG - OTHER] OU PRN (18:45)
[2019-04-20] MEDS ORDERED: FLUTICASONE NASAL SPRAY (FLONASE) 16 GM BTL NS PRN (18:45)
[2019-04-20] MEDS ORDERED: ACETAMINOPHEN PO PRN (18:45)
[2019-04-20] MEDS ORDERED: POLYVINYL ALCOHOL OU PRN (18:45)
[2019-04-20] MEDS ORDERED: POVIDONE OU PRN (18:45)
[2019-04-20] MEDS ORDERED: NON-FORMULARY MEDICATION 1 EA EA (Pantoprazole Sodium 20 MG) PO SCH (21:00)
[2019-04-20] MEDS ORDERED: NON-FORMULARY MEDICATION 1 EA EA (Amlodipine Besylate 5 MG) PO SCH (21:00)
[2019-04-21] MEDS ORDERED: NON-FORMULARY MEDICATION 1 EA EA (Cholecalciferol (Vitamin D3) (Vitamin D3) 1,000 UNIT) PO SCH (09:00)
[2019-04-21] MEDS ORDERED: ASPIRIN E.C. 81 MG (ECOTRIN) TAB PO SCH (09:00)
[2019-04-21] MEDS ORDERED: OMEGA PO SCH (09:00)
[2019-04-21] MEDS ORDERED: DIGOXIN 0.125 MG (LANOXIN) TAB PO SCH (09:00)
[2019-04-21] MEDS ORDERED: NON-FORMULARY MEDICATION 1 EA EA (Dorzolamide HCl 1 DROP) OU SCH (09:00)
[2019-04-21] MEDS ORDERED: DHA PO SCH (09:00)
[2019-04-21] MEDS ORDERED: [UNRECOGNIZED DRUG - OTHER] PO SCH (09:00)
[2019-04-21] MEDS ORDERED: EPA PO SCH (09:00)
[2019-04-21] MEDS ORDERED: NON-FORMULARY MEDICATION 1 EA EA (Vitamin B Complex 1 CAP) PO SCH (09:00)
[2019-04-21] MEDS ORDERED: FISH OIL PO SCH (09:00)
[2019-04-21] MEDS ORDERED: lisINopril 40 MG (PRINIVIL) TABLET PO SCH (09:00)
--- NOTE | 2019-04-21 09:05 | STRESS TEST ---
DATE OF SERVICE: 04/20/2019 LEXISCAN MYOVIEW STRESS TEST REPORT REFERRING PHYSICIAN: Fara Cohen MD Baseline heart rate is 69, baseline blood pressure 176/82. Baseline EKG is sinus rhythm with no ischemic changes. In summary, the patient was injected with 1.11 mCi of technetium-99 Myoview and the resting images were obtained. Then, the patient received 0.4 mg of Lexiscan followed by 31.3 mCi of technetium-99 Myoview. Throughout the test, there were no EKG changes. The resting and stress images were reviewed and compared in the short axis, horizontal long axis, and vertical long axis views. Review of the images showed increase gastric uptake affecting the quality of the images. There is no significant ischemia or infarction. SSS is 5, SDS 2, TID value 1.11. On the gated images, the left ventricle appeared to be normal size with normal contractility. Calculated ejection fraction 82%. CONCLUSION: 1. The patient tolerated Lexiscan well. 2. Increase gastric uptake affecting the quality of the images with no significant ischemia or infarction. 3. Normal left ventricular size with normal contractility. Calculated ejection fraction 82%. Job ID: [id number] DocumentID: [id number] Dictated Date: 04/21/2019 08:34:25 Circular Knitter Helper Date: 04/21/2019 09:04:49 Dictated By: JS WALDEN MD
[2019-04-21] MEDS ORDERED: warFARin 3 MG (COUMADIN) TAB PO SCH (18:00)
[2019-04-22] MEDS ORDERED: warFARin 3 MG (COUMADIN) TAB PO SCH (18:00)
== END 2019-04-20 17:42 | disposition home or self-care (01) ==
LOC: EDUNIT# 12:36 → ER 12:38 → UNDOADMOB 14:30 → ICU 14:30 → UNDODISOB 04-20 18:53
PROVIDERS: ADMIT Internal Medicine; ATTEND Internal Medicine
DX: R07.89 Other chest pain (principal); I48.0 Paroxysmal atrial fibrillation; I44.0 Atrioventricular block, first degree; I10 Essential (primary) hypertension; E78.5 Hyperlipidemia, unspecified; I65.23 Occlusion and stenosis of bilateral carotid arteries; F41.9 Anxiety disorder, unspecified; K21.9 Gastro-esophageal reflux disease without esophagitis; K44.9 Diaphragmatic hernia without obstruction or gangrene; M81.0 Age-related osteoporosis without current pathological fracture; Z86.73 Personal history of transient ischemic attack (TIA), and cerebral infarction without residual deficits; Z79.01 Long term (current) use of anticoagulants; Z79.82 Long term (current) use of aspirin; Z79.899 Other long term (current) drug therapy
CPT/HCPCS: 36415; 71045; 78452; 80048; 80053; 80061; 80162; 83735; 83874; 83880; 84484; 85025; 85610; 85730; 93005; 93017